=== PATIENT | female | born 1955 | race Caucasian/White ===

== ENCOUNTER 2025-09-02 11:58 | Outpatient (CLI) | payer MEDICARE, MEDICAID, SELFPAY ==
--- NOTE | ~2025-09-02 | XR_ITS ---
XR lumbar spine 6V w bending Indication: M54.9 - Dorsalgia, unspecified Comparison: None Findings: No fracture, no subluxation flexion-extension Moderate loss of disc height throughout with moderate to severe loss of disc at L5-S1. Soft tissues unremarkable Impression: No acute abnormality. Reviewed, dictated and finalized at location P. Impression: No acute abnormality.
--- NOTE | ~2025-09-02 | XR_ITS ---
EXAMINATION: XR sacrum coccyx min 2V, 09/02/2025 12:20 CDT HISTORY: M46.1 - Sacroiliitis, not elsewhere classified COMPARISON: No comparisons available. Findings: No acute fracture or malalignment. Sclerosis of the sacroiliac joints, no erosions, no bridging osteophyte formation. Soft tissues unremarkable. Impression: No acute fracture or malalignment. Reviewed, dictated and finalized at location P. Impression: No acute fracture or malalignment.
--- OUTSIDE RECORDS SUMMARY | 2025-09-02 13:52 | XMS_ITS | Clinical Summary ---
Author Organization [facility] Address [address] [place] [address] Care Team Providers Care Detonator Maker Name Role Phone Kostas Montalvo MD Primary Care Provider [phone] Kostas Montalvo MD Unavailable [phone] Allergies Active Allergy Reactions Criticality Noted Date Comments Acetaminophen-Codeine Unknown 06/27/2023 Buspirone Unknown 01/17/2023 Buspirone HCL Codeine Codeine Other (See comments),Anaphylaxis High 03/03/2013 States I get a really bad stomach ache and it keeps going up and up into chest to where I can't breathe Levofloxacin Itching High 07/14/2021 Levofloxacin Itching Low 10/30/2022 Medications cyclobenzaprin e (FLEXERIL) 10 mg tablet Take by mouth 2 (two) times a day as needed 2 Active HYDROcodone-ac etaminophen (NORCO) 5-325 mg per tablet [address] (PROTONIX) 40 mg EC tablet Take 1 tablet (40 mg total) by mouth 2 (two) times a day 3 Active rOPINIRole (REQUIP) 0.5 mg tablet Take 1 tablet (0.5 mg total) by mouth nightly 3 Active denosumab (Prolia) 60 mg/mL syringe Inject 1 mL (60 mg total) under the skin Active albuterol (PROAIR RESPICLICK) 90 mcg/actuation inhaler Inhale every 4 (four) hours as needed Active Ca-D3-mag rp-ebda-xcx-ma ng-bor (Calcium 600-D3 Plus, mag-zinc,) 600 mg calcium- 20 mcg-50 mg tablet Take by mouth daily Active multivitamin tablet Take by mouth daily Active cyanocobalamin (Vitamin B-12) 1,000 mcg/mL injection cyanocobalamin (vit B-12) 1,000 mcg/mL injection solution Inject 1000 micrograms every month by subcutaneous route. Active cyanocobalamin (Vitamin B-12) 100 mcg tablet Take 0.5 tablets (50 mcg total) by mouth daily Active ferrous sulfate 325 mg (65 mg of elemental iron) tablet Take 1 tablet (325 mg total) by mouth daily Active Humira,CF, Pen 40 mg/0.4 mL pen injector kitIndications :Crohn's Disease Inject 0.4 mL (40 mg total) under the skin every 14 (fourteen) days 6 each 3 5 Active Active Problems Problem Noted Date Diagnosed Date Crohn's disease of colon without complication History of gastric bypass 07/07/2024 Tobacco use disorder 07/07/2024 Abnormal liver function tests 06/27/2023 Mass of left side of neck 01/17/2023 Overview (01/21/2023): Left neck mass, FNA (01/17/23, [facility]) - Necroinflammatory debris - Organisms, most consistent with Gram-positive cocci Assessment & Plan (03/14/2023 12:05 PM CDT): - Remains on Augmentin. She has had some decrease in size of left neck mass after last aspiration but no improvement in size since. She does have a new small nodule to the center of the mass. No erythema, warmth, tenderness or issues swallowing. - Etiology of left neck mass remains unclear but seems to be due to infection given purulence on aspiration and +Strep on culture. She reports no improvement with antibiotics alone, only with aspirations. Will reach out to ENT regarding further intervention. If she is to undergo an excision of mass would recommend it be send for pathology and culture (aerobic/anaerobic, AFB, fungal). It is possible she has an atypical organism causing infection as she is currently on Humira - For now she will continue on Augmentin while we clarify further plans with ENT Assessment & Plan (02/14/2023 1:10 PM CDT): - Large, firm left sided neck mass noted on exam. No erythema, fluctuance, or tenderness. Currently off antibiotics. - Discussed possible causes of infection with patient including the Strep intermedius that was cultured. Given she is immunocompromised on Humira we will also investigate other infectious causes that could present this way, including Bartonella and Tularemia (serologies drawn today). She has follow up with ENT tomorrow and states she believes area will be aspirated. Will ask to be sent again for culture (aerobic/anaerobic, fungal, AFB), pathology, and Bartonella PCR if possible. Message sent to Dr. Zeng regarding cultures. Will follow up on results and restart antibiotics based on findings. - Recommend she hold her dose of Humira that is scheduled for tomorrow until we have completed work up for left neck mass. I called and spoke with nurse for her GI physician and discussed our recommendations. She will hold tomorrows dose and I will call GI office when we believe it is safe to restart. - Discussed with patient the rational for treatment, culture results, risk of recurrent infection, signs/symptoms of recurrent infection, and to contact ID clinic with any questions or concerns Crohn's disease of colon with complication 07/14 Lung mass 06/27/2012 Surgical History Surgery Date Site/Laterality Comments [facility] Cholecystectomy - (Added by [facility] Conv) [facility] TOTAL ABDOMINAL HYSTERECT W/WO RMVL TUBE OVARY Hysterectomy - (Added by TW Conv) GASTRIC BYPASS Gastric Surgery For Morbid Obesity Gastric Bypass - -1987 (Added by TW Conv) [facility] HEMORRHOIDECTOMY INTERNAL RUBBER BAND LIGATIONS Hemorrhoidectomy - (Added by TW Conv) [facility] TONSILLECTOM[facility] PRIMARY/SEC ONDARY <AGE 12 Tonsillectomy - (Added by TW Conv) SHOULDER SURGERY Shoulder Surgery Left - (Added by TW Conv) ESOPHAGOGASTRODUODENOSCOPY COLONOSCOPY Medical History Medical History Date Comments Anxiety disorder Anxiety - (Adde d by TW Conv) COPD (chronic obstructive pulmonary disease) Crohn disease (HCC) Chronic low back pain GERD (gastroesophageal reflux disease) Depression Tobacco abuse Diverticulosis Metabolic dysfunction-associ ated steatotic liver disease (MASLD) Family History Medical History Relation Name Comments Cancer Brother 1 Cancer Brother 2 Cancer - (Added by TW Conv) Cancer Father Cancer - (Added by TW Conv) Brain cancer Mother Brain Tumor - ( Added by TW Conv) Breast cancer Mother Breast Cancer - (Added by TW Conv) Cancer Mother Cancer Sister 1 Cancer Sister 2 Cancer - (Added by [employer] Conv) Relation Name Status Comments Brother 1 Brother 2 Father Mother Sister 1 Sister 2 Social History Tobacco Use Types Packs/Day Years Used Date Smoking Tobacco: Every Day Cigarettes Tobacco Cessation:Ready to Q uit: Not Asked; Counseling Given: Not Answered AUDIT-C Answer Date Recorded Q1: How often do you have a drink containing alc ohol? 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 Gender Identity Not on file Sexual Orientation Not on file Obstetrics History Last Filed Vital Signs Vital Sign Reading Time Taken Comments Blood Pressure 163/80 07/07/2024 1:02 PM CDT Pulse 96 07/07/2024 1:02 PM CDT Temperature 36.8 C (98.2 F) 06/27/2023 8:01 AM CDT Respiratory Rate 18 01/15/2023 12:4 6 PM 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 Oxygen Saturation 97% 07/07/2024 1:02 PM CDT Inhaled Oxygen Concentration - - Weight 52.6 kg (115 lb 14.4 oz) 07/07/2024 1:02 PM CDT Height 149.9 cm (4' 11) 07/07/2024 1:02 PM CDT Body Mass Index 23.41 07/07/2024 1:02 PM CDT Plan of Treatment Health Maintenance Due Date Last Done Comments Colon Cancer Screening-Colonoscopy 1955 Depression Screening 1955 Fall Risk Assessment 1955 Hepatitis C Screening 1955 DTaP/Tdap/Td Vaccine (1 - Tdap) 07/16/2012 2 Zoster Vaccine (2 of 3) 11/18/2015 09/23/2015 Well Visit 65+ 2019 Osteoporosis Screening-Bone Density Scan 09/04/2023 09/04/2021, 09/04/2021 Breast Cancer Screening-Mammogram 05/29/2024 023 Influenza Vaccine (#1) 2025 , 09/08/2021, 09/05/2020, Additional history exists Pneumococcal vaccine 65+ (3 of 3 - PCV20 or PCV21) 09/05/2025 09/05/2020, 09/23/2015 Hepatitis B Screening Completed 07/07/2024 Insurance [employer] MEDICARE MEDICARE [facility] Address: [address] [address] [place] [address] IDMI Care Teams Detonator Maker Relationship Specialty Start Date End Date Kostas Montalvo MD [address] [place] [id number] PCP - General Family Practice 01/15/23 Kostas Montalvo MD [address] [place] [id number] Family Practice 01/15/23
--- OUTSIDE RECORDS SUMMARY | 2025-09-02 13:52 | XMS_ITS | Data Portability ---
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 Plan of Treatment Reminders Order Date Submit Date Provider Last Modified By Organization Details Last Modified Time Details Appointments Follow Up 15 2024 10:30A NILS Falcon Not available Not available Not available Lab TSH, serum or plasma 2024 025 [facility] (Lab), [address] [place], [address], 08/17/2025 17:09:33 lipid panel, serum [address] (Lab), [address] [place], [address], 08/20/2025 08:45:23 CMP, serum or plasma [address] (Lab), [address] [place], [address], 08/20/2025 08:45:23 unlisted lab - shield blood-bas ed colorecta l cancer screening 2024 025 [place] [address] [employer] [facility], [address], [place], [address], 08/20/2025 08:45:24 glycohemo globin, total, blood [address] (Lab), [address] [place], [address], 08/20/2025 08:45:23 magnesium , serum or plasma [address] (Lab), [address] [place], [address], 08/20/2025 08:45:23 CBC w/ auto diff [address] (Lab), [address] [place], [address], 08/20/2025 08:45:23 hemoglobi n A1C, fingersti ck 2024 025 [facility], [address] [place] [address], [address], 05/05/2025 16:02:39 glycohemo globin, total, blood [address] (Lab), [address] [place], [address], 2025 08:44:10 urinalysi s, dipstick 2024 025 [facility], [address] [place] [address], [address], 02/18/2025 10:18:48 culture, urine + sensitivi ty 2024 025 [facility] (Lab), [address] [place], [address], 02/19/2025 11:10:59 Referral pain managemen t referral - Please call patient to schedule an appointme nt. Thank you. 2024 025 [email or web address] Alberto Garcia MD, [address], [place], [address], 08/09/2025 09:29:12 otolaryng ologist referral - Please call patient to schedule an appointme nt. Thank you. 2024 025 [email or web address] Selvin Hollis MD, [address], [place], [address], 08/09/2025 09:29:32 Procedures None recorded. Surgeries None recorded. Imaging MAMMO, screening , digital, bilateral - Please call patient to schedule. 2024 025 [facility], [address], [address] [address], [place], [address], 08/16/2025 11:55:19 XR, lumbosacr al spine, 2 or 3 view [id number] [place] [address] Imaging, [address], [place], [address], 05/19/2025 17:36:17 Medication Orders cyclobenz aprine 5 mg tablet 2024 025 [facility], [address] [place] [address], [address], 08/13/2025 12:54:28 Ozempic 0.25 mg or 0.5 mg (2 mg/3 mL) subcutane ous pen injector 2024 025 [place], [address] [place] [address], [address], 05/05/2025 15:30:46 Debrox 6.5 % ear drops 2024 025 [place], [address] [place] [address], [address], 04/07/2025 11:30:07 DermOtic Oil 0.01 % ear drops 2024 025 [place] [place], [address] [place] [address], [address], 04/07/2025 11:32:25 Debrox 6.5 % ear drops 2024 025 [facility], [address] [place] [address], [address], 03/28/2025 16:23:30 docusate sodium 100 mg capsule 2024 025 [facility], [address] [place] [address], [address], 02/18/2025 10:01:21 polyethyl lucia glycol 3350 17 gram/dose oral powder 2024 025 [facility], [address] [place] [address], [address], 02/18/2025 10:01:24 ciproflox acin 500 mg tablet 2024 025 [facility], [address] [place] [address], [address], 05/05/2025 15:16:56 Debrox 6.5 % ear drops 2024 025 [facility], [address] [place] [address], [address], 02/18/2025 10:11:25 Patient TargetsNo targets recorded. Patient Instructions Encounter Date Encounter Id Patient Instructions Last Modified By Organization Details Last Modified Time 03/24/2025 [id number] right ear clear , left ear some cerumen came out , but not all . RTC 7 days for left ear irrigation [email or web address] Not available 03/28/2025 16:23:29 04/07/2025 [id number] rtc 7 days for left ear irrigation [email or web address] Not available 04/13/2025 11:39:35 Reason for Referral Pain Management Referral for Lumbar spondylosis Please call patient to schedule an appointment. Thank you. Referring Physician: Ludmila Asher, Family Medicine, Encounter Date: 05/05/2025 Knowledge Architect Referral fo r Bilateral earache Please call patient to schedule an appointment. Thank you. Referring Physician: Ludmila Asher, [facility] Medicine, Encounter Date: 05/05/2025 Results Created Date Observation Date Name Description Value Unit Range Abnormal Flag Note LastModifiedBy Organization Detail LastModifiedTime 05/05/2005/05/2025 hemog lobin A1C, finge rstic k HgbA1C 5.[address], [address], 05/05/2025 15:19:40 07/01/2007/01/2025 urina lysis , dipst ick Leukocytes (reference range: negative killian/ l) Negati ve Not Available [address], [address], 02/18/2025 10:07:17 07/01/20 25 07/01/2025 urina lysis , dipst ick Nitrite (reference rage: negative mg/dl) negati ve Not Available [address], [address], 02/18/2025 10:07:17 07/01/20 25 07/01/2025 urina lysis , dipst ick Urobilinogen (reference range: 0.2-1 mg/dl) 0.2 Not Available [address], [address], 02/18/2025 10:07:17 07/01/20 25 07/01/2025 urina lysis , dipst ick Protein (reference range: negative mg/dl) Negati ve Not Available [address], [address], 02/18/2025 10:07:17 07/01/20 25 07/01/2025 urina lysis , dipst ick pH (reference range: 5-7) 6.0 Not Available [address], [address], 02/18/2025 10:07:17 07/01/20 25 07/01/2025 urina lysis , dipst ick Blood (reference range: negative Low/ l) Negati ve Not Available [address], [address], 02/18/2025 10:07:17 07/01/2007/01/2025 urina lysis , dipst ick Specific [place] (reference range: 1.005-1.030) 1.005 Not Available [address], [address], 02/18/2025 10:07:17 07/01/20 25 07/01/2025 urina lysis , dipst ick Ketone (reference range: negative mg/dl) Negati ve Not Available [address], [address], 02/18/2025 10:07:17 07/01/20 25 07/01/2025 urina lysis , dipst ick Bilirubin (reference range: negative mg/dl) Negati ve Not Available [address], [address], 02/18/2025 10:07:17 07/01/2007/01/2025 urina lysis , dipst ick Glucose (reference range: negative mg/dl) Negati ve Not Available [address], [address], 02/18/2025 10:07:17 07/01/20 25 07/01/2025 urina lysis , dipst ick Appearance Clear Not Available [facility] [place] [address] [facility], [place], [address], 02/18/2025 10:07:17 07/01/20 25 07/01/2025 urina lysis , dipst ick Color Yellow Not Available [facility] [place] [address] [facility], [place], [address], 02/18/2025 10:07:17 08/13/20 25 08/22/2025 SHIEL D BLOOD -BASE D COLOR ECTAL CANCE R SCREE BRIDGET crc NEGATI VE negative Not Available [facility] [address], [place], [address], 08/22/2025 15:56:01 05/24/20 25 05/24/2025 XR, lumbo sacra l spine , 2 or 3 view No observ ation record ed. [address] [facility] [address], [place], [address], 06/02/2025 17:27:37 05/24/20 25 05/24/2025 XR, lumbo sacra l spine , 2 or 3 view No observ ation record ed. [facility] [address], [place], [address], 05/24/2025 17:57:17 Result Notes None recorded. Problems Name Problem SNOMED Code Status Onset Date Resolution Date Notes Provider Name and Address Organization Details Recorded Time Disorder of trunk 377143350 Active Not Available [facility] 3 09:14:51 Abscess 684673083 Active Not Available [facility] 3 09:14:51 Smoking reduced 137887781 Active Not Available [facility] 3 09:14:51 Folliculit is 13459988 Active Not Available [facility] 3 09:14:51 Chronic obstructiv e pulmonary disease 07449582 Active Not Available [facility] 3 09:14:51 Chronic vaginitis 90090028 Active Not Available [facility] 3 09:14:51 Hearing difficulty 106038351 Active Not Available [facility] 3 09:14:51 Asthma 882598028 Active Not Available [facility] 3 09:14:52 Osteoarthr itis of knee 540208857 Active Not Available [facility] 3 09:14:52 Acute vaginitis 77720020 Active Not Available [facility] 3 09:14:52 Hand cramps 521559310 Active Not Available [facility] 3 09:14:52 Headache 19010975 Active Not Available [facility] 3 09:14:52 Wound of skin 607822816 Active Not Available [facility] 3 09:14:52 Low back pain 381098643 Active Not Available [facility] 3 09:14:52 Pruritic disorder 782850172 Active Not Available [facility] 3 09:14:52 Polyuria 01234595 Active Not Available [facility] 3 09:14:52 Pain in right lower limb 568917989 Active Not Available [facility] 3 09:14:52 Vaginal discharge problem 621303700 Active Not Available [facility] 3 09:14:52 Dental abscess 789685278 Active Not Available [facility] 3 09:14:52 Pain in calf 111191304 Active Not Available [facility] 3 09:14:52 Left upper quadrant pain 461885130 Active Not Available [facility] 3 09:14:52 Current tear of medial cartilage AND/OR meniscus of knee Active Not Available [facility] 3 09:14:53 Current tear of lateral cartilage AND/OR meniscus of knee Active Not Available [facility] 3 09:14:53 Type 2 diabetes mellitus without complicati on 037807167 Active Ludmila Asher, NILS [address] [facility] [facility] [address], [place], [address] , [facility] 5 12:43:45 Abscess of lower limb 099892156 Active Not Available [facility] 3 09:14:53 Abscess of skin and/or subcutaneo us tissue 87892861 Active Not Available [facility] 3 09:14:53 Restless legs syndrome 96009175 Active Not Available [facility] 3 09:14:53 Depressive disorder 91749800 Active Not Available [facility] 3 09:14:53 Hypertensi ve disorder 28473083 Active NILS Santana [address], [place], [address] , [facility] [facility] 5 12:43:27 Memory impairment 104230300 Active Not Available [facility] 3 09:14:53 Osteoarthr itis 799722123 Active Not Available [facility] 3 09:14:53 Dermatosis of scalp 513265171 Active Not Available [facility] 3 09:14:54 Dizziness 572668941 Active Not Available [facility] 3 09:14:54 Epidermoid cyst of skin 070235341 Active Not Available [facility] 3 09:14:54 Bacterial vaginosis 952175930 Active Not Available [facility] 3 09:14:54 Chronic osteoarthr itis 01775843 Active Not Available [facility] 3 09:14:54 Pain of breast 12244265 Active Not Available [facility] 3 09:14:54 Upper respirator y infection 20681478 Active Not Available [facility] 3 09:14:54 Hyperlipid emia 96764139 Active NILS Santana [address], [place], [address] , [facility] [facility] 5 12:57:31 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 06022299 Active Not Available [facility] 3 09:14:55 Essential hypertensi on 53321652 Active Not Available [facility] 3 09:14:55 Hypercalce jovani 69761898 Active Not Available [facility] 3 09:14:55 Hyperparat hyroidism 00278482 Active Not Available [facility] 3 09:14:55 Muscle pain 58994946 Active Not Available [facility] 3 09:14:55 Diabetes mellitus 35372295 Active Not Available [facility] 3 09:14:55 Pain in limb 98106500 Active Not Available [facility] 3 09:14:55 Reactive airway disease 917019521719 Active Not Available [facility] 3 09:14:55 Hearing loss 68679046 Active 2021 Not Available [facility] 3 09:14:51 Hearing loss 14603392 Active 2021 Not Available [facility] 3 09:14:51 Constipati on 89365538 Active 2021 Not Available [facility] 3 09:14:51 Mass of colon 959197271 Active 2021 Not Available [facility] 3 09:14:54 Otitis externa of right ear 0446000181684 101 Active 2022 Shirley Graf MD [address], [place], [address] , [facility] 3 17:57:32 Abdominal pain 39814701 Active 2022 Shirley Graf MD [address], [place], [address] , [facility] 3 15:33:34 Nausea and vomiting 37249700 Active 2022 Shirley Graf MD [address], [place], [address] , [place] [facility] 3 15:47:55 Sleep disorder 32045424 Active 2022 Shirley Graf MD [address], [place], [address] , [facility] 3 15:12:43 Closed fracture of left ankle 2656800975085 9108 Active 2022 CRAIG Morales [address], [place], [address] , [facility] 3 15:11:05 Bilateral hearing loss 69533939 Active 2023 Ronak Garvin RN null, [facility] 4 14:34:32 SARS-CoV-2 Active 2023 CRAIG Morales [address], [place], [address] , [facility] 4 09:07:59 Impacted cerumen of bilateral ears 9808692047649 108 Active 2023 CRAIG Morales [address], [place], [address] , [facility] 4 17:18:45 Screening for malignant neoplasm of breast Active 2023 CRAIG Morales [address], [place], [address] , [facility] 4 14:40:56 Mass of central portion of left breast 1322643283436 06 Active 2023 CRAIG Morales [address], [place], [address] , [facility] 4 15:09:19 Mass of left breast 1080513214228 9103 Active 2023 Olive Purcell RN null, [facility] 4 11:31:21 Type 2 diabetes mellitus 76828120 Active 2023 Odalys [place] RN null, [facility] 4 08:21:23 Serum creatinine above reference range 858939642 Active 2023 CRAIG Morales [address], [place], [address] , [facility] 4 00:12:32 Impacted cerumen 05400921 Active 2023 Barbara Burk shawn, [place] [facility] 4 09:52:25 Neuropathy 781727280 Active 2023 CRAIG Morales [address], [place], [address] , [place] [facility] 4 09:52:47 Acute urinary tract infection 622698466 Active 2024 CRAIG Morales [address], [place], [address] , [place] [facility] 5 10:03:15 Chronic kidney disease stage 3A 799922186 Active 2024 NILS Santana [address], [place], [address] , [place] [facility] 5 17:10:01 Hypertensi ve renal disease 83262901 Active 2024 CRAIG Morales [address], [place], [address] , [place] [facility] 5 16:29:52 Eczema of external auditory canal 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 Active 2024 CRAIG Morales [address], [place], [address] , [place] [facility] 5 11:30:12 Lumbar spondylosi s 023220443 Active 2024 NILS Santana [address], [place], [address] , [place] [facility] 5 15:27:34 Bilateral earache 047945394 Active 2024 NILS Santana [address], [place], [address] , [place] [facility] 5 15:33:39 Nausea 192831361 Active 2024 NILS Santana [address], [place], [address] , [place] [facility] [employer] 5 11:10:08 Cratavares 89985451 Active 2024 NILS Santana [address] [facility] [address], [place], [address] , [facility] [employer] [facility] [employer] 5 12:44:13 Leukocytos is 378075479 Active 2024 NILS Santana [address] [facility], [address] [address], [place], [address] , [facility] [employer] [facility] [employer] 12:22:14 Notes:Some problems listed i n Documents: #[id number], #[id number], #[id number], #[id number], #[id number], #[id number] could not be added to this patient's chart. Please review these documents and add these problems to the patient's chart manually as needed. Problem Notes None recorded. Procedures Surgical History Date Name Laterality Status Provider Name and Address Organization Details Recorded Time 5 Ear Irrigation completed CRAIG Morales [address] [facility], [address] [address], [place], [address], [employer] [facility] [employer] 04/13/2025 11:39:05 5 Ear Irrigation completed CRAIG Morales [address] [facility], [address] [address], [place], [address], [employer] [facility] [employer] 03/24/2025 12:21:55 4 Medicare Wellness CPT Code, subsequent completed Odalys [place] RN [place] [employer] [facility] [employer] 04/27/2024 11:51:50 3 Transitional_C are_Management completed Tracie Flaherty MA [facility] 04/25/2023 14:50:35 Imaging Results None recorded. Procedure Notes None recorded. Medical Equipment None Reported. Allergies Allergen ID Allergen Name Allergen Category Reaction Reaction Severity Criticality Documentation Date Start Date Code Code System Note Provider Name and Address Organization Details Recorded Time 60355 amoxicill in medicatio n Not available Not available Not available 01/16/2023 723 RxNorm yeast infec tion Not Available [facility] 3 09:17:34 Medications Name Sig Start Date Stop Date Status Note LastModified by Organization Details LastModified Time verapamil ER (SR) 120 mg tablet,ex tended release TAKE 1 TABLET BY MOUTH EVERY DAY active Not Available Not Available No t Available cyclobenz aprine 10 mg tablet TAKE 1 TABLET(S ) TWICE A DAY BY ORAL ROUTE. active Not Available Not Available No t Available neomycin- polymyxin -hydrocor t 3.5 mg/mL-10, 000 unit/mL-1 % ear solution INSTILL 4 DROPS INTO AFFECTED EAR(S) BY OTIC ROUTE 3 TIMES PER DAY active Not Available Not Available No t Available BD Alcohol Swabs active Not Available Not Available Not Available nystatin 100,000 unit/mL oral suspensio n active Not Available Not Available Not Available venlafaxi ne ER 37.5 mg capsule,e xtended release 24 hr TK 1 C PO QD 08/02 completed Not Available Not Available Not Available venlafaxi ne ER 75 mg capsule,e xtended release 24 hr TK 1 C PO QD 03/08 completed Not Available Not Available Not Available gabapenti n 600 mg tablet TK 1 T PO TID 10/27 completed Not Available Not Available Not Available nicotine 14 mg/24 hr daily transderm al patch Apply 1 patch every day by transder mal route. active Not Available Not Available No t Available Pneumovax -23 25 mcg/0.5 mL injection solution INJECT 0.5 ML INTRAMUS CULARLY DIRECTED . active Not Available Not Available No t Available oxybutyni n chloride ER 10 mg tablet,ex tended release 24 hr TAKE 1 TABLET BY MOUTH EVERY DAY active Not Available Not Available No t Available azithromy mt 250 mg tablet TAKE 2 TABLETS BY MOUTH TODAY, THEN TAKE 1 TABLET DAILY FOR 4 DAYS 05/15 completed Not Available Not Available Not Available ibuprofen 800 mg tablet TAKE 1 TABLET BY MOUTH THREE TIMES A DAY NEEDED 08/02 completed Not Available Not Available Not Available fluconazo le 150 mg tablet Take 1 tablet every day by oral route. 01/26 completed Not Available Not Available Not Available ranitidin e 300 mg tablet TAKE 1 TABLET TWICE A DAY 05/04 completed Not Available Not Available Not Available hydrocodo ne 5 mg-acetam inophen 325 mg tablet TK 1 OR 2 TS PO Q 4 TO 6 H PRN active Not Available Not Available No t Available ondansetr on HCl 8 mg tablet Take 1 tablet every 8 hours by oral route for 2 days. active Not Available Not Available No t Available meloxicam 15 mg tablet TAKE 1 TABLET BY MOUTH EVERY DAY 05/05 completed Not Available Not Available Not Available metronida zole 0.75 % (37.5 mg/5 gram) vaginal gel INSERT 1 APPLICAT ORFUL VAGINALL Y FOR 5 DAYS active Not Available Not Available No t Available Medrol (Amarjit) 4 mg tablets in a dose pack Take by oral route as directed 05/15 completed Not Available Not Available Not Available prednison e 20 mg tablet 05/15 completed Not Available Not Available Not Available dexametha sone 6 mg tablet Take 1 tablet every day by oral route in the morning for 7 days. 04/27 completed Not Available Not Available Not Available gabapenti n 400 mg capsule Take 1 capsule 3 times a day by oral route. 11/05 completed Not Available Not Available Not Available metronida zole 500 mg tablet TK 2 TS PO Q 12 H FOR 1 DAY active Not Available Not Available No t Available acetamino phen 300 mg-codein e 30 mg tablet active Not Available Not Available Not Available insulin syringe U-100 with needle 1 mL 29 gauge x 06/02 completed Not Available Not Available Not Available ciproflox acin 500 mg tablet Take 1 tablet every 12 hours by oral route for 10 days. 05/05 completed Not Available Not Available Not Available sulfameth oxazole 800 mg-trimet hoprim 160 mg tablet Take 1 tablet every 12 hours by oral route for 10 days. 08/02 completed Not Available Not Available Not Available hydrocodo ne 10 mg-acetam inophen 325 mg tablet 08/02 completed Not Available Not Available Not Available peg-elect rolyte solution 420 gram oral solution MIX AND DRINK UTD 10/27 completed Not Available Not Available Not Available omeprazol e 40 mg capsule,d elayed release Take 1 capsule every day by oral route. active Not Available Not Available No t Available tramadol 50 mg tablet TAKE 1-2 TABLETS BY MOUTH twice daily NEEDED FOR PAIN. MUST LAST 30 DAYS. active Not Available Not Available No t Available acetamino phen 500 mg tablet Take 2 tablets every 6 hours by oral route as needed. active Not Available Not Available No t Available triamcino lone acetonide 0.1 % topical cream APPLY THIN LAYER TO DAMP SCALP RUB IN WELL COVER LEAVE ON 4 HOURS OVERNIGH T THEN WASH OFF 08/02 completed Not Available Not Available Not Available butalbita l-acetami nophen-ca ffeine 50 mg-325 mg-40 mg tablet TAKE 1 TABLET BY MOUTH 4 TIMES DAILY NEEDED FOR HEADACHE active Not Available Not Available No t Available simvastat in 40 mg tablet TAKE 1 TABLET BY MOUTH EVERY DAY 08/02 completed Not Available Not Available Not Available ondansetr on 8 mg disintegr ating tablet TAKE 1 TABLET BY MOUTH 3 TIMES PER DAY NEEDED FOR NAUSEA active Not Available Not Available No t Available lidocaine -prilocai ne 2.5 %-2.5 % topical cream active Not Available Not Available Not Available pramipexo le 0.5 mg tablet Take 1 tablet every day by oral route at bedtime. active Not Available Not Available No t Available Celebrex 200 mg capsule Take 1 capsule every day by oral route. 2013 active Not Available Not Available Not Avai lable meloxicam 7.5 mg tablet TK 1 T PO D PRN 09/02 completed Not Available Not Available Not Available verapamil 120 mg tablet Take 1 tablet every day by oral route. 09/02 completed Not Available Not Available Not Available oxycodone -acetamin ophen 5 mg-325 mg tablet active Not Available Not Available Not Available alprazola m 0.5 mg tablet TAKE 1 TABLET TWICE A DAY BY ORAL ROUTE NEEDED. 03/06 completed Not Available Not Available Not Available amoxicill in 875 mg tablet active Not Available Not Available Not Available alprazola m 0.25 mg tablet TAKE 1 TABLET BY MOUTH 3 TIMES A DAY NEEDED active Not Available Not Available No t Available famotidin e 20 mg tablet TAKE 1 TABLET BY MOUTH TWICE A DAY active Not Available Not Available No t Available oxycodone -acetamin ophen 10 mg-325 mg tablet TK 1 T PO Q 6 H PRN P active Not Available Not Available No t Available Ear Wax Removal Kit 6.5 % drops INSTILL 10 DROPS INTO AFFECTED EAR(S) ( LEFT EAR) BY OTIC ROUTE 1 TIMES PER DAY... leave for 30 minutes , pull up and back on auricle and drain ,, use rubber ear plugs to keep fluid in active Not Available Not Available No t Available meclizine 25 mg tablet TAKE 1 TABLET 3 TIMES A DAY BY ORAL ROUTE NEEDED. 03/06 completed Not Available Not Available Not Available amlodipin e 10 mg tablet 1 po daily 06/27 completed Not Available Not Available Not Available dexametha sone 2 mg tablet 04/27 completed Not Available Not Available Not Available hydrocodo ne 7.5 mg-acetam inophen 325 mg tablet active Not Available Not Available Not Available cephalexi n 500 mg capsule Take 1 capsule every 12 hours by oral route. active Not Available Not Available No t Available oseltamiv ir 75 mg capsule Take 1 capsule twice a day by oral route for 5 days. 08/02 completed Not Available Not Available Not Available Prozac 20 mg capsule one po daily 08/22 completed Not Available Not Available Not Available metformin 1,000 mg tablet TAKE 1 TABLET BY MOUTH TWICE A DAY active Not Available Not Available No t Available triamcino lone acetonide 0.1 % topical ointment active Not Available Not Available Not Available ranitidin e 150 mg tablet Take 1 tablet twice a day by oral route. 09/02 completed Not Available Not Available Not Available clotrimaz ole-betam ethasone 1 %-0.05 % topical cream APPLY TO RASH ON BOTTOM TWICE A DAY NEEDED UNTIL CLEAR active Not Available Not Available No t Available ranitidin e 300 mg capsule active Not Available Not Available Not Available orphenadr ine citrate ER 100 mg tablet,ex tended release 08/02 completed Not Available Not Available Not Available nicotine 21 mg/24 hr daily transderm al patch APPLY 1 PATCH(ES ) EVERY DAY BY TRANSDER MAL ROUTE. active Not Available Not Available No t Available Advair Diskus 500 mcg-50 mcg/dose powder for inhalatio n INHALE 1 PUFF BY MOUTH TWICE A DAY NEEDED active Not Available Not Available No t Available docusate sodium 100 mg capsule Take 1 capsule twice a day by oral route as directed for 30 days. active Not Available Not Available No t Available gabapenti n 300 mg capsule TAKE 1 CAPSULE BY MOUTH THREE TIMES A DAY 02/12 completed Not Available Not Available Not Available omeprazol e 20 mg capsule,d elayed release TAKE ONE CAPSULE BY MOUTH EVERY DAY active Not Available Not Available No t Available Banophen 25 mg capsule TAKE 1 CAPSULE BY MOUTH 3 TIMES DAILY NEEDED FOR ALLERGIC REACTION active Not Available Not Available No t Available monteluka st 10 mg tablet TAKE 1 TABLET BY MOUTH EVERY DAY IN THE EVENING active Not Available Not Available No t Available hydroxyzi ne HCl 25 mg tablet TAKE 1 TO 2 TABLETS AT BEDTIME NEEDED ITCHING active Not Available Not Available No t Available bisacodyl 5 mg tablet,de layed release active Not Available Not Available Not Available mupirocin 2 % topical ointment APPLY TO AFFECTED AREA 3 TIMES A DAY 03/06 completed Not Available Not Available Not Available zolpidem 5 mg tablet active Not Available Not Available Not Available furosemid e 20 mg tablet active Not Available Not Available Not Available gabapenti n 100 mg capsule Take 1 capsule 3 times a day by oral route. 10/06 completed Not Available Not Available Not Available ergocalci ferol (vitamin D2) 1,250 mcg (50,000 unit) capsule TAKE 1 CAP BY MOUTH 1 TIME PER WEEK active Not Available Not Available No t Available clobetaso l 0.05 % topical ointment 10/27 completed Not Available Not Available Not Available epinephri ne 0.3 mg/0.3 mL injection , auto-inje ctor active Not Available Not Available Not Available ibuprofen 600 mg tablet 01/26 completed Not Available Not Available Not Available cefuroxim e axetil 500 mg tablet active Not Available Not Available Not Available polyethyl lucia glycol 3350 17 gram/dose oral powder MIX 17GM WITH LIQUID AND TAKE BY MOUTH DAILY NEEDED 3 days per week active Not Available Not Available No t Available levofloxa mt 500 mg tablet 1 po daily 04/22 completed Not Available Not Available Not Available albuterol sulfate HFA 90 mcg/actua tion aerosol inhaler INHALE 2 PUFFS BY MOUTH EVERY 4 HOURS NEEDED FOR WHEEZING /SOB active Not Available Not Available No t Available morphine 15 mg immediate release tablet active Not Available Not Available Not Available ondansetr on 4 mg disintegr ating tablet 05/04 completed Not Available Not Available Not Available cefdinir 300 mg capsule active Not Available Not Available Not Available fluticaso ne propionat e 50 mcg/actua tion nasal spray,dom pension USE 2 SPRAYS IN EACH NOSTRIL DAILY active Not Available Not Available No t Available loratadin e 10 mg tablet TK 1 T PO QD 09/02 completed Not Available Not Available Not Available spironola ctone 50 mg tablet Take 1 tablet every day by oral route. active Not Available Not Available No t Available nicotine 7 mg/24 hr daily transderm al patch Apply 1 patch every day by transder mal route. active Not Available Not Available No t Available Pneumovax -23 25 mcg/0.5 mL injection syringe PHARMACY ADMINIST ERED 05/04 completed Not Available Not Available Not Available Q-Dryl 12.5 mg/5 mL oral liquid TK 5 ML PO Q 6-8 H PRN FOR MILD TO SEVERE ALLERGIC REACTION 09/02 completed Not Available Not Available Not Available escitalop lurdes 20 mg tablet TAKE 1 TABLET BY MOUTH EVERY DAY 08/02 completed Not Available Not Available Not Available nicotine 21mg/24hr -14mg/24h r-7mg/24h r daily transderm patches,s equentl Apply 1 patch every day by transder mal route. 08/02 completed Not Available Not Available Not Available cyclobenz aprine 5 mg tablet TAKE 1 TABLET BY MOUTH AT BEDTIME NEEDED FOR MUSCLE SPASMS active Not Available Not Available No t Available duloxetin e 30 mg capsule,d elayed release TAKE 1 CAPSULE BY MOUTH EVERY DAY FOR 2 WEEKS active Not Available Not Available No t Available duloxetin e 60 mg capsule,d elayed release TAKE 1 CAPSULE BY MOUTH EVERY DAY 05/04 completed Not Available Not Available Not Available Muse-Smo othe/FS Scalp Oil 0.01 % APPLY THIN LAYER TO DAMP SCALP BY TOPICAL ROUTE MASSAGE WELL AND COVER. LEAVE ON FOR 4 HOURS OR OVERNIGH T THEN WASH OFF active Not Available Not Available No t Available pregabali n 50 mg capsule Take 1 capsule twice a day by oral route as needed for 30 days. active Not Available Not Available No t Available zoledroni c acid 2013 active injectio n given once on 06/25/14 Not Available Not Available Not Available OneTouch Ultra2 Meter kit 09/08 completed Not Available Not Available Not Available Chantix 1 mg tablet FPD UTD 10/27 completed Not Available Not Available Not Available fluocinol one acetonide oil 0.01 % ear drops INSTILL 5 DROPS INTO AFFECTED EAR(S) bilatera l BY OTIC ROUTE 4 TIMES PER DAY for 2 days then 2 times daily active Not Available Not Available No t Available aripipraz ole 2 mg tablet 08/02 completed Not Available Not Available Not Available Symbicort 160 mcg-4.5 mcg/actua tion HFA aerosol inhaler INHALE 2 PUFFS BY MOUTH TWICE DAILY - RINSE MOUTH AFTER USE active Not Available Not Available No t Available venlafaxi ne ER 150 mg tablet,ex tended release 24 hr Take 1 tablet every day by oral route. 08/22 completed Not Available Not Available Not Available Prevnar 13 (PF) 0.5 mL intramusc ular syringe TO BE ADMINIST ERED BY [facility] FOR IMMUNIZA TION 09/02 completed Not Available Not Available Not Available Chantix Starting Month Box 0.5 mg (11)-1 mg (42) tablets in dose pack 05/07 completed Not Available Not Available Not Available Stimulant Laxative Plus 8.6 mg-50 mg tablet Take 2 tablets every day by oral route as needed. active Not Available Not Available No t Available Fluvirin (PF) 45 mcg (15 mcg x3)/0.5 mL intramusc ular syringe TO BE ADMINIST ERED BY [facility] FOR IMMUNIZA TION active Not Available Not Available No t Available Easy Touch Safety Lancets 30 gauge DIABETIC TESTING SUPPLY Check BS daily active Not Available Not Available No t Available Farxiga 10 mg tablet Take 1 tablet every day by oral route as directed for 90 days. 2024 active Not Available Not Available Not Avai lable Fluvirin 45 mcg (15 mcg x 3)/0.5 mL intramusc ular suspensio n INJECT 0.5 ML INTRAMUS CULARLY DIRECTED . active Not Available Not Available No t Available Fluvirin 45 mcg (15 mcg x 3)/0.5 mL intramusc ular suspensio n active Not Available Not Available Not Available Rexulti 1 mg tablet TAKE 1 TABLET BY MOUTH EVERY DAY active Not Available Not Available No t Available Rexulti 0.5 mg tablet 08/02 completed Not Available Not Available Not Available Fluvirin 45 mcg (15 mcg x 3)/0.5 mL intramusc ular suspensio n ADM 0.5ML IM UTD active Not Available Not Available No t Available Accu-Chek Guide test strips ACCUCHEC K TWICE DAILY active Not Available Not Available No t Available Flucelvax Quad (PF) 60 mcg (15 mcg x 4)/0.5 mL IM syringe TO BE ADMINIST ERED BY [facility] FOR IMMUNIZA TION 09/02 completed Not Available Not Available Not Available Fluzone Quad (P F) 60 mcg(15 mcgx4)/0. 5 mL intramusc ular syringe TO BE ADMINIST ERED BY [facility] FOR IMMUNIZA TION 10/27 completed Not Available Not Available Not Available Accu-Chek Guide Me Glucose Meter active Not Available Not Available Not Available Fluzone High-Dose Quad (PF) 240 mcg/0.7 mL IM syringe PHARMACY ADMINIST ERED 05/04 completed Not Available Not Available Not Available Ozempic 1 mg/dose (4 mg/3 mL) subcutane ous pen injector INJECT 0.75ML (1MG) SUB-Q EVERY WEEK ON SATURDAY active Not Available Not Available No t Available Paxlovid 300 mg (150 mg x 2)-100 mg tablets in a dose pack take 3 tabs twice daily for 5 days 08/18 completed Not Available Not Available Not Available Ozempic 0.25 mg or 0.5 mg (2 mg/3 mL) subcutane ous pen injector INJET 0.5MG SUB-Q ONCE WEEKLY ON Saturday active Not Available Not Available No t Available Vitals Date Recorded Body height Body mass index (BMI) Body weight Body temperature Oxygen saturation Oxygen saturation in Arterial blood by Pulse oximetry Heart rate Systolic And Diastolic Provider Name and Address Organization Details Last Updated DateTime 5 161.29 cm 35 kg/m2 01808.0 7 g 97.5 [degF] 96 % 96 % 98 /min 120/72 mm[Hg] ANABELLA Willams [place] - [facility] [employer] [facility] 5 09:50:35 Date Recorded Body height Body mass index (BMI) Body weight Body temperature Heart rate Oxygen saturation Oxygen saturation in Arterial blood by Pulse oximetry Systolic And Diastolic Provider Name and Address Organization Details Last Updated DateTime 5 161.29 cm 35 kg/m2 55178.0 7 g 97.8 [degF] 83 /min 96 % 96 % 130/88 mm[Hg] ANABELLA Willams [facility] [employer] [facility] 5 11:45:04 Date Recorded Body height Body mass index (BMI) Body weight Body temperature Heart rate Oxygen saturation Oxygen saturation in Arterial blood by Pulse oximetry Systolic And Diastolic Provider Name and Address Organization Details Last Updated DateTime 5 161.29 cm 35.3 kg/m2 68093.3 8 g 97.2 [degF] 94 /min 97 % 97 % 130/78 mm[Hg] Anabelle Oscar [facility] [employer] [facility] 5 10:51:20 Date Recorded Body height Body temperature Heart rate Respiratory rate Oxygen saturation Oxygen saturation in Arterial blood by Pulse oximetry Pain severity - 0-10 verbal numeric rating [Score] - Reported Body mass index (BMI) Body weight Systolic And Diastolic Provider Name and Address Organization Details Last Updated DateTime 5 161.29 cm 97 [degF] 84 /min 28 /min 97 % 97 % 4 35.6 kg/m2 47311.9 4 g 132/90 mm[Hg] Jaki Fuentes RN [facility] [employer] [facility] 5 15:08:21 Date Recorded Body height Body mass index (BMI) Body weight Body temperature Heart rate Pain severity - 0-10 verbal numeric rating [Score] - Reported Oxygen saturation Oxygen saturation in Arterial blood by Pulse oximetry Respiratory rate Systolic And Diastolic Provider Name and Address Organization Details Last Updated DateTime 5 161.29 cm 31.6 kg/m2 68929.2 2 g 97.2 [degF] 98 /min 5 97 % 97 % 24 /min 110/78 mm[Hg] Jaki Fuentes RN [facility] [employer] [facility] 5 12:23:56 Social History Question Answer Notes LastModified by Organizat ion Details LastModified Time Tobacco Smoking Status Never Smoker SHAHZAD Marlow, [facility] [employer] [facility] 02/12/2023 11:52:08 Do You Have An Advance Directive? Yes Winsome [email or web address] Information not available 08/13/2025 Are You Blind Or Do You Have Difficulty Seeing? Yes Glasses Information not available 05/05/2025 In The 14 Days Before Symptom Onset, Have You Had Close Contact With A Laboratory-confir med COVID-19 While That Case Was Ill? No [id number] Information not available 01/16/2023 In The 14 Days Before Symptom Onset, Have You Had Close Contact With A Person Who Is Under Investigation For COVID-19 While That Person Was Ill? No [id number] Information not available 01/16/2023 Are You Deaf Or Do You Have Serious Difficulty Hearing? Yes Very Hard Of Hearing Information not available 05/05/2025 What Type Of Diet Are You Following? REGULAR Information not available 08/13/2025 Have There Been Any Changes To Your Family Or Social Situation? No Information no t available 05/05/2025 Do You Use Insect Repellent Routinely? No Information not available 08/13/2025 Advance Directive- Providers Has Reviewed Directive And Consents To Follow Them (insert Provider Name With Any Objectives In Notes Field) No Information not available 08/13/2025 Presence Of Domestic Violence No Information no t available 08/13/2025 Guns Present In The Home? No Information not available 08/13/2025 Are You Able To Care For Yourself? Yes Information not available 08/13/2025 Are You Blind Or Do Yo Have Difficulty Seeing? Yes Wears Glasses Information not available 08/13/2025 Are You Deaf Or Do You Have Serious Difficulty Hearing? Yes Very Information not available 08/13/2025 General Stress Level? Low Information not available 08/13/2025 Live Alone Of With Others? With Others Information not available 08/13/2025 What Was The Date Of Your Most Recent Tobacco Screening? 04/27/2024 [email or web address] Information not available 04/27/2024 Do You Have Any Pets? No Information not available 05/05/2025 What Is Your Relationship Status? Single Information not available 08/13/2025 Do You Use Your Seat Belt Or Car Seat Routinely? Yes Information not available 05/05/2025 Do You Have Smoke And Carbon Monoxide Detectors In Your Home? Yes Information not available 05/05/2025 Are You Passively Exposed To Smoke? No Information no t available 05/05/2025 Are There Any Smokers In Your House? No Information not available 05/05/2025 Do You Participate In Social Media? No Information not available 05/05/2025 Do You Use Sunscreen Routinely? No Information not available 08/13/2025 Have You Recently Traveled Abroad? No [id number] Information not available 01/16/2023 Do You Have Difficulty Walking Or Climbing Stairs? No Information not available 05/05/2025 Sex: Unknown Functional Status Question Answer Note LastModified by Organizat ion Details LastModified Time What is your level of alcohol consumption? None [email or web address] Information not available 02/12/2023 Are you currently employed? No Information not available 05/05/2025 Do you have transportation difficulties? No Information not available 05/05/2025 Are you able to walk independently without assistance or assistive devices? YESWOREST Information not available 05/05/2025 Do you have difficulty doing errands alone? Yes Information not available 05/05/2025 Are you able to care for yourself independently? lives at Extended care facility Information not available 05/05/2025 Do you have difficulty dressing, bathing, grooming, or toileting? No Information not available 05/05/2025 Mental Status Question Answer Note LastModified by Organizat ion Details LastModified Time Do you feel stressed (tense, restless, nervous, or anxious, or unable to sleep at night)? [id number] Information not available 05/05/2025 Do you have difficulty concentrating, remembering or making decisions? Yes Information no t available 08/13/2025 Family History Relationship Description Onset Age of this Age Resolved Age Notes LastModified by Organization Details LastModified Time Sister Diabetes mellitus [id number] Not available 01/16/2023 09:13:45 Sister Hypertensive disorder [id number] Not available 01/16/2023 09:13:45 Mother Diabetes mellitus [id number] Not available 01/16/2023 09:13:45 Medical History Condition Response DIZZINESS Y KIDNEY DISEASE Y DIABETES, TYPE Y ALLERGIES/HAYFEVER Y OTHER # 1 Y HYPOTENSION Y SEASONAL ALLERGIES Y HEARTBURN / REFLUX Y COPD Y OBESITY Y ECZEMA Y ASTHMA Y BOWEL PROBLEMS Y BACK / NECK PROBLEMS Y DEPRESSION (INCLUDING POST ) Y Gynecological HistoryNo gynecological history recorded. Obstetrics History GPAL:G 0 P 0 0 0 0 Immunizations Vaccine Type Date Status Note Provider Nam e and Address Organization Details Recorded Time Influenza, high-dose, quadrivalent, PF 2 completed Not Available [employer] 01/16/2023 09:17:30 Influenza, adjuvanted, quadrivalent, PF 1 completed Jaki Fuentes RN null, [place] [employer] [facility] [employer] 08/13/2025 12:18:05 COVID-19, mRNA, LNP-S, PF, 30 mcg/0.3 mL dose 1 completed Jaki Fuentes RN [facility] [place] [employer] 08/13/2025 12:18:05 Influenza, high-dose, trivalent, PF 4 completed CRAIG Morales [address] [address], [place], [address], [employer] [facility] [employer] 09/08/2024 17:14:35 pneumococcal polysaccharide PPV23 4 completed CRAIG Morales [address] [address], [place], [address], [employer] [facility] [employer] 09/08/2024 17:14:35 Past Encounters Encounter ID Performer Location Encounter Start Date Encounter Closed Date Diagnosis/Indication Diagnosis SNOMED-CT Code Diagnosis ICD10 Code Diagnosis IMO Codes Diagnosis Note [id number] Shirley Graf MD [facility] Ryne suarez [address] [facility] [place] [address] 05/04/2021 00:00:00 05/04/2021 21:10:09 [id number] Shirley Graf MD [facility] [place] [address] [place] [address] 07/06/2021 00:00:00 07/07/2021 06:21:32 [id number] Shirley Graf MD [facility] [place] [address] [place] [address] 07/27/2021 00:00:00 07/27/2021 21:01:06 [id number] Shirley Graf MD [facility] [place] [address] [place] [address] 08/17/2021 00:00:00 08/17/2021 21:22:01 [id number] Shirley Graf MD [facility] [place] [address] , [place] [address] 10/06/2021 00:00:00 10/06/2021 16:32:07 [id number] Shirley Graf MD [facility] [place] [address] [place] [address] 01/09/2022 00:00:00 01/10/2022 06:09:32 [id number] Shirley Graf MD [facility] [place] [address] [place] [address] 01/18/2022 00:00:00 01/18/2022 19:58:45 [id number] Shirley Graf MD [facility] [place] [address] [place] [address] 02/07/2022 00:00:00 02/07/2022 19:49:21 [id number] Shirley Graf MD [facility] [place] [address] [place] [address] 05/15/2022 00:00:00 05/15/2022 21:12:50 [id number] Shirley Graf MD [facility] [place] [address] [place] [address] 09/27/2022 00:00:00 09/28/2022 06:33:05 [id number] Shirley Graf MD [facility] [place] [address] [place] [address] 11/07/2022 00:00:00 11/07/2022 20:53:39 [id number] Shirley Graf MD [facility] [place] [facility] [place] [address] 02/20/2023 14:52:47 02/20/2023 15:53:38 Abdominal pain 79314316 R10.9 Needs to d/c meloxicam. Needs to start omeprazole 40 mg daily Nausea and vomiting 1692 1999 R11.2 Ask for zofran as needed, has it as prn at facility she lives inF/u in 2 weeks. [id number] Shirley Graf MD [facility] [place] [facility] [place] [address] 03/06/2023 14:38:42 03/06/2023 15:18:45 Abdominal pain 92620379 R10.9 Doing better Hearing loss 76166714 H9 1.93 Get new hearing aides the ones she has is cutting into outside of ear Sleep disorder 68478884 G47.9 [id number] Shirley Graf MD [facility] [place] [facility] [place] [address] 04/25/2023 14:47:22 04/25/2023 15:28:25 Transition of care 5205700193 105 Z75.8 Closed fra cture of left ankle 7696219702 1572987 S82.892A Chronic low back pain 27 3604885 M54.50 [id number] Shirley Graf MD [facility] Ryne smithe [address] [place] [address] [place] [address] 02/13/2024 11:49:01 02/13/2024 12:34:02 Impacted cerumen of bilateral ears 2053614671 123644 H61.23 Asthma 380792965 J45.90 9 Chronic ob structive pulmonary disease 43744552 J44.9 Chronic osteoarthritis 27081435 M19.90 Constipation 78496421 K5 9.00 Depressive disorder 3548 9007 F32.A Essential hypertension 32385480 I10 Hearing difficulty 21431 0000 H90.0 Hidradenit is suppurativa 24472711 L73.2 Hyperlipidemia 97061805 E78.5 Low back pain 412302387 M54.50 Osteoarthr itis of knee 228670828 M17.9 Restless l egs syndrome 72511767 G25.81 Type 2 panda betes mellitus without complication 662674740 E11.9 [id number] Amilcar Lowery MD [facility] [place] [address] [place] [address] [place] [address] 02/26/2024 14:02:34 02/26/2024 15:00:10 Impacted cerumen of bilateral ears 5002229192 616822 H61.23 Screening for malignant neoplasm of breast 460197827 Z12.39 Asthma 693093556 J45.90 9 Bilateral hearing loss 22286288 H91.93 Chronic ob structive pulmonary disease 20810376 J44.9 Chronic osteoarthritis 03840497 M19.90 Depressive disorder 3548 9007 F32.A Essential hypertension 15707237 I10 Hyperlipidemia 75701042 E78.5 Low back pain 703238092 M54.50 Osteoarthritis 405795317 M19.90 Osteoarthr itis of knee 010413906 M17.9 Restless l egs syndrome 06967904 G25.81 [id number] Amilcar Lowery MD [facility] [place] [address] 04/27/2024 11:47:44 04/27/2024 12:32:10 Adult health examination 116441596 Z00.00 Screening for disorder 627145170 Z13.9 Abscess 603752641 L02.91 sternum [id number] Amilcar Lowery MD [address] [place] [address] 08/18/2024 11:19:50 08/18/2024 11:55:18 Administration of influenza vaccine 68072730 Z23 Chronic low back pain 27 3388647 M54.50 Impacted c erumen of bilateral ears 0495714810 734173 H61.23 Administra tion of pneumococcal vaccine 17383466 Z23 Asthma 720387934 J45.90 9 Bilateral hearing loss 05702324 H91.93 Chronic ob structive pulmonary disease 58675269 J44.9 Chronic osteoarthritis 99980602 M19.90 Depressive disorder 3548 9007 F32.A Hearing loss 09070145 H9 1.93 Restless l egs syndrome 10771496 G25.81 Type 2 panda betes mellitus without complication 495678065 E11.9 [id number] Amilcar Lowery MD [address] [place] [address] 08/28/2024 11:51:05 10/14/2024 09:50:33 Impacted cerumen 09660159 H61.22 [id number] Amilcar Lowery MD [address] [address] 02/18/2025 09:37:50 02/18/2025 10:22:55 Constipation 92996006 K59.00 Acute urin gómez tract infection 899976414 N39.0 Impacted c erumen of bilateral ears 9826067909 011686 H61.23 [id number] Amilcar Lowery MD [address] [address] 03/24/2025 11:34:36 03/24/2025 12:16:11 Bilateral hearing loss 11225319 H91.93 Impacted c erumen of bilateral ears [id number] 229799 H61.23 Type 2 panda betes mellitus [id number] E11.9 Hypertensi ve renal disease 64452566 I12.9 N18.31 [id number] Amilcar Lowery MD [address] [address] 04/07/2025 10:40:41 04/07/2025 11:37:56 Hypertensive renal disease 37437111 I12.9 N18.31 [id number] Acute urin gómez tract infection 043427788 N39.0 Impacted cerumen 7625788 6 H61.22 Impacted c erumen of bilateral ears 1102466235 011678 H61.23 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 She currently takes tramadol, pregabalin , and tylenol for this. 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 Makes her cry Screening mammography 24 064301 Z12.31 39231145 Screening for malignant neoplasm of colon 411793991 Z12.11 Health Concerns Section Related Observation LastModified by Organization Detai ls LastModified Time None Recorded Concern Status LastModified by Organization Details LastModified Time None Recorded Advance Directives Directive Y: Winsome Adan Payers Insurance Date Sequence Insurance Name Policy Number Policy Hurtado Covered Member ID Hurtado Member ID Guarantor Name 08/18/2024 1 [facility] [id number] Jazmin Garvin [id number] Jazmin Garvin 08/16/2025 1 [facility] (MEDICARE REPLACEMENT/AD VANTAGE - PPO) [id number] Jazmin Garvin [id number] Redcomfort Garvin 08/18/2024 1 [facility] (MEDICARE REPLACEMENT/AD VANTAGE - PPO) Jazmin Garvin [id number] Jazmin Garvin 08/16/2025 2 [place] [facility] Jazmin Garvin [id number] Jazmin Garvin 08/16/2025 2 [place] WHEN MEDICARE OR MEDICARE REPLACEMENT PRIMARY) Jazmin Garvin [id number] Jazmin Garvin 08/16/2025 2 [facility] ON OR AFTER 06/18/2025 (MEDICAID REPLACEMENT - HMO) Jazmin Garvin [id number] Jazmin Garvin Notes Date Note Type Note Provider Name and Address Organization Details Recorded Time 02/18/2025 text/html ROS as noted in the HPI chills yesterday and today , no fever CRAIG Morales [address], [place], [address], [employer] 02/22/2025 10:51:22 03/24/2025 text/html ROS as noted in the HPI both ears stopped up since . CRAIG Morales [address], [place], [place], [address], [employer] 03/28/2025 16:30:43 04/07/2025 text/html ROS as noted in the HPI still wax in ear, left , not sure they are putting in drops right at the facility CRAIG Morales [address], [place], [place], [address], [employer] 04/13/2025 11:44:49 05/05/2025 text/html Redcomfort Brown is a 70 year old female patient here today to establish care, she was previously under the care of Darius Veronica. She is hard of hearing, she has concerns today with BARB ear pain, this is chronic.She has difficulty with speech related to her hearing loss. 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 She has concerns today with neuropathy of the right leg, this is causing her pain today. She takes pregabalin 50 mg BID and tramadol 50 mg daily. This has been present for 3-4 years. 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 Last A1C unknown.The patient does check their blood glucose at home.They are currently taking metformin 1,000 mg BID.Patient denies confusion, excessive urination and thirst.Admits to neuropathy History of hypertension. This is well controlled. Patient does not check BP readings at home. She takes verapamil 120 mg daily.BP on arrival today is 132/90.Patient declines fatigue.She admits to headaches and dizziness daily. She will take a tylenol for this. She does have asthma. She takes Symbicort daily. Ludmila Asher, ANGULAR DEVELOPER [address] [facility], [place], [address], [facility] 05/05/2025 16:02:44 08/13/2025 text/html Jazmin Garvin is a 70 year old female patient here today for a 1 month FU She is hard of hearing, she has concerns today with BARB ear pain, this is chronic.She has difficulty with speech related to her hearing loss. 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 She has concerns today with neuropathy of the right leg, this is causing her pain today. She takes pregabalin 50 mg BID and tramadol 50 mg daily. This has been present for 3-4 years.She has concerns with leg cramping She has persistent back pain. 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 Last A1C unknown.The patient does check their blood glucose at home.They are currently taking metformin 1,000 mg BID.Patient denies confusion, excessive urination and thirst.Admits to neuropathy History of hypertension. This is well controlled. Patient does not check BP readings at home. She takes verapamil 120 mg daily.BP on arrival today is 132/90.Patient declines fatigue.She admits to headaches and dizziness daily. She will take a tylenol for this. She does have asthma. She takes Symbicort daily. Flu shot: will get at pharmacyCOVID vaccines: [id number]: 2023, PCV20 recommendedMammogra m: orderedPAP: many years agoColonoscopy: clean many years ago, unsure when NILS Santana [address] [facility], [facility] [address], [place], [address], [place] [facility] 08/13/2025 13:24:08 OBGyn Episode No OBEpisode recorded.
--- OUTSIDE RECORDS SUMMARY | 2025-09-02 13:52 | XMS_ITS | Clinical Summary ---
Author Organization [facility] Address [address] [address] Phone Care Team Providers Care Quiller Machine Fixer Name Role Phone Kostas oMntalvo MD Primary Care Provider [phone] Karthik Herron MD Unavailable [phone] Allergies Active Allergy Reactions Criticality Noted Date Comments Buspirone Unknown Buspirone HCL Codeine Unknown Codeine derivatives Levofloxacin Itching High 07/14/2021 Medications Multiple Vitamin (DAILY VALUE MULTIVITAMIN) Tablet Take 1 Tablet by mouth daily. Active citalopram (CELEXA) 20 MG Tablet Take 20 mg by mouth daily as needed. Active Calcium Carbonate-Vit D-Min (CALCIUM 600+D PLUS MINERALS) 600-400 MG-UNIT Tablet Take by mouth daily. Active Calcium 600 MG Tablet Take by mouth daily. Active traMADol (ULTRAM) 50 MG Tablet Take by mouth. 2 tablets BID PRN Active pantoprazole (PROTONIX) 20 MG Tablet Delayed Response Take 20 mg by mouth daily. Active cyclobenzaprine (FLEXERIL) 10 MG Tablet Take by mouth 2 times daily. Active Cyanocobalamin (B-12 PO) Take by mouth daily as needed. Active Cyanocobalamin (B-12 COMPLIANCE INJECTION IJ) by Injection route every 30 days. Active Ferrous Sulfate (IRON PO) Take by mouth daily. Active ALBUTEROL IN take by inhalation every 4 hours as needed. Active Denosumab (Prolia) 60 MG/ML Solution Prefilled Syringe 60 mg by Subcutaneous route every 180 days. Active ROPINIROLE HCL PO Take 1 Tablet by mouth nightly. Active HYDROcodone-acet aminophen (NORCO) 5-325 MG Tablet Take 1 Tablet by mouth every 4 hours as needed. Active PREDNISONE PO Take by mouth. A ctive amoxicillin-clav ulanate (AUGMENTIN) 875-125 MG Tablet TAKE 1 TABLET BY MOUTH EVERY 12 HOURS 3 Active Adalimumab (Humira, 2 Pen,) 40 MG/0.4ML Pen-injector KitIndications:C rohn's disease of colon with complication Take 0.4 mL by mouth every 14 days. 2 Each 5 4 Active Active Problems Problem Noted Date Diagnosed Date Status post gastric bypass for obesity 2 Long-term use of high-risk medication 10/04/2021 Crohn's disease of colon with complication 07/14 Immunizations Immunization Administration Dates Next Due Influenza Vaccine 08/28/2022, 1,09/05/2020,2018 Influenza Vaccine greater than 3 yrs 09/10/2013 Pneumococcal Vaccine - 13 Valent 09/05/2020 Pneumococcal Vaccine Adult - 23 Valent 09/23/2015 TD VACCINE 07/15/2012 Zoster Vaccine, live 09/23/2015 Family History Medical History Relation Name Comments Cancer Brother Cancer Father No Known Problems Maternal Aunt No Known Problems Maternal Grandfather No Known Problems Maternal Grandmother No Known Problems Maternal Uncle Cancer Mother Breast and brai n stem No Known Problems Other No Known Problems Paternal Aunt No Known Problems Paternal Grandfather No Known Problems Paternal Grandmother No Known Problems Paternal Uncle Cancer Sister Relation Name Status Comments Brother Father Maternal Aunt Maternal Grandfather Maternal Grandmother Maternal Uncle Mother Other Paternal Aunt Paternal Grandfather Paternal Grandmother Paternal Uncle Sister Social History Tobacco Use Types Packs/Day Years Used Date Smoking Tobacco: Every Day Cigarettes 1.5 45 Smokeless Tobacco: Never Tobacco Cessation:Ready to Q uit: Yes; Counseling Given: Yes Alcohol Use Standard Drinks/Week Comments Never 0 (1 standard drink = 0.6 oz pur e alcohol) Sexually Active Control Partners Comments Not Currently Comments No Sex and Gender Information Value Date Recorded Sex Assigned at Not on file Legal Sex Female 12:19 AM CDT Gender Identity Not on file Sexual Orientation Not on file Last Filed Vital Signs Vital Sign Reading Time Taken Comments Blood Pressure 140/88 12/11/2023 12:45 PM RETAIL SELLING FLOOR LEADER Pulse 92 12/11/2023 12:45 PM RETAIL SELLING FLOOR LEADER Temperature 36 C (96.8 F) 12/11/2023 10:18 AM RETAIL SELLING FLOOR LEADER Respiratory Rate 14 12/11/2023 12:45 PM RETAIL SELLING FLOOR LEADER Oxygen Saturation 98% 12/11/2023 12:45 PM RETAIL SELLING FLOOR LEADER Inhaled Oxygen Concentration - - Weight 54.4 kg (120 lb) 12/03/2023 1:00 PM RETAIL SELLING FLOOR LEADER Height 149.9 cm (4' 11) 12/03/2023 1:00 PM RETAIL SELLING FLOOR LEADER Body Mass Index 24.24 12/03/2023 1:00 PM RETAIL SELLING FLOOR LEADER Plan of Treatment Health Maintenance Due Date Last Done Comments TdaP Immunization 1954 Cologuard 1999 Immunochemical Fecal Occult Blood 1999 Respiratory Syncytial Virus (RSV) Immunization (Adult) (1 - Risk 60-74 years 1-dose series) 2014 Zoster Immunization (1 of 2) 11/18/2015 09/23/2015 Medicare Initial AWV G0438 03/18/2020 SARS-COV-2 Immunization (3 - Moderna risk series) 07/11/2021 06/13/2021, 03/16/2021 DEXA Bone Density 09/04/2023 09/04/2021 Mammogram 06/13/2024 06/13/2023, 07/25/2021 Influenza Immunization (#1) 07/19/202508/18, 09/08/2021, 09/05/2020, Additional history exists Pneumococcal Immunization (50+ years) (3 of 3 - PCV20 or PCV21) 09/05/2025 09/05/2020, 09/23/2015 Colonoscopy 12/11/2026 12/11/2023, 03/2 07/2022, 02/04/2017 Colorectal Cancer Screening 12/11/2026 DTaP/Tdap/Td Immunization Discontinued 07/15/2012 Pneumococcal Immunization Combined Discontinued 09/05/2020, 09/23/2015 Hepatitis C Virus (HCV) Screening Completed 07/24/2023, 11/01/2022 Hepatitis B Immunization Aged Out No longer eligible based on patient's age to complete this topic Human Papillomavirus (HPV) Immunization Aged Out No longer eligible based on patient's age to complete this topic Meningococcal Immunization (ACWY) Aged Out No longer eligible based on patient's age to complete this topic Rotavirus Immunization Aged Out No lo nger eligible based on patient's age to complete this topic Procedures Procedure Name Priority Date/Time Associated Diagnosis Comments HEPATITIS PANEL ACUTE (AHP) Routine 11/01/2022 12:32 PM RETAIL SELLING FLOOR LEADER Elevated liver enzymes Inflammatory liver disease, unspecified ROBERTO BONE DENSITOMETRY AXIAL SKELETON Routine 09/04/2021 12:00 AM CDT Crohn's disease of colon with complication (HCC) Postmenopause MAMMOGRAM BILATERAL GENERIC 07/25/2021 12:00 AM CDT from Last 3 Months or Most Recently Relevant to Health Maintenance Results * HEPATITIS PANEL ACUTE (AHP) (11/01/2022 12:32 PM RETAIL SELLING FLOOR LEADER) HEPATITIS A IGM ANTIBODY NON DETECTED NON DETECTED [facility] [id number] B 11/01/2022 9:23 PM RETAIL SELLING FLOOR LEADER [facility] Comment: IGM Antibodies to HAV not detected. Does not exclude early acute or recovered HAV infection. HEP B CORE AB (IGM) NON DETECTED NON DETECTED [facility] ARCH [id number] B 11/01/2022 9:23 PM RETAIL SELLING FLOOR LEADER [facility] Comment:IGM anti-HBC not det ected. Does not exclude the possibility of exposure to or infection with HBV. HEPATITIS B SURFACE ANTIGEN NON DETECTED NON DETECTED [facility] ARCH [id number] B 11/01/2022 9:23 PM RETAIL SELLING FLOOR LEADER [facility] Comment:A nonreactive test r esult does not exclude the possibility of exposure to or infection with Hepatitis B virus. A nonreactive test result in individuals with prior exposure to hepatitis B may be due to antigen levels below the detection limit of this assay or lack of antigen reactivity to the antibodies in this assay. hepatitis C antibody 0.14 <1 S/CO [facility] ARCH [id number] B 11/01/2022 9:23 PM RETAIL SELLING FLOOR LEADER [facility] Comment: Signal/Cutoff ratio < 0.79 is Nondetected Signal/Cutoff ratio 0.80-0.99 is Grayzone Signal/Cutoff ratio > 0.99 is Detected Supplemental assays are recommended if signal/cutoff ratio is >/=1.00. Signal/cutoff ratio result >/= 5.00 is 97% predictive of positivity for recombinant immunoblot assay (RIBA) and will be reported to the [place] Department of Public Health as required. Blood Venipuncture / Unknown 11/01/2022 12:32 PM RETAIL SELLING FLOOR LEADER 11/01/2022 12:46 PM RETAIL SELLING FLOOR LEADER us Karthik Herron MD HEMATOLOGY ORDERABLES Final Res ult [facility] [address] [place] [address], [place] * ROBERTO BONE DENSITOMETRY AXIAL SKELETON (09/04/2021 12:00 AM CDT) Anatomical Region Laterality Modality BODY N/A Other 09/04/2021 us Angela Nayak PAC IMG DEXA ORDERABLES Final Result * MAMMOGRAM BILATERAL MISCELLANEOUS (07/25/2021 12:00 AM CDT) 07/25/2021 us Not On File Provider IMG MAMMO ORDERABLES Final Result SCAN from Last 3 Months or Most Recently Relevant to Health Maintenance Insurance MEDICAID [place] MEDICARE C [employer] Care Teams Quiller Machine Fixer Relationship Specialty Start Date End Date Kostas Montalvo MD [address] [place] [address] PCP - General Family Medicine 02/10/22 Karthik Herron MD [address] [place] [address] Consulting Physician Gastroenterology 08/16/22
--- OUTSIDE RECORDS SUMMARY | 2025-09-02 13:52 | XMS_ITS | Encounter Summary ---
Author Organization [facility] Healthcare Address [address] [place] [address] Care Team Providers Care Chute Man Name Role Phone Kostas Montalvo MD Primary Care Provider [phone] Kostas Montalvo MD Unavailable [phone] Reason for Visit * Auth/Cert (Routine) Specialty Diagnoses / Procedures Referred By Contcyril t Referred To Contact Diagnoses Crohn's disease of colon without complication (HCC) Crohn's disease of colon without complication (CMS/HCC) (HCC) [K50.10] Procedures [place] COLONOSCOPY FLX DX W/COLLJ SPEC WHEN PFRMD COLONOSCOPY Referral ID Status Reason Start Date Expiration Date Visits Re quested Visits Authorized [id number] 1 1 Encounter Details Date Type Department Care Team (Late st Contact Info) Description 12/28/2024 Hospital Encounter [facility] [address] [place] [address] Jareth Whitaker, DO 4 [facility] [address] [address] Social History Tobacco Use Types Packs/Day Years Used Date Smoking Tobacco: Every Day Cigarettes AUDIT-C Answer Date Recorded Q1: How often [...] on file Legal Sex Female 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 Gender Identity Not on file Sexual Orientation Not on file documented as of this encounter Plan of Treatment Not on file documented as of this encounter Visit Diagnoses Diagnosis Crohn's disease of colon without complication (HCC)- Primary documented in this encounter Admitting Diagnoses Diagnosis Crohn's disease of colon without complication (HCC) documented in this encounter Care Teams Chute Man Relationship Specialty Start Date End Date Kostas Montalvo MD [address] [place] [address] PCP - General Family Practice 01/15/23 Kostas Montalvo MD [address] [place] [address] Family Practice 01/15/23 documented as of this encounter
--- OUTSIDE RECORDS SUMMARY | 2025-09-02 13:52 | XMS_ITS | Encounter Summary ---
Author Organization [facility] Address [address] [place] [address] Phone Care Team Providers Care Machine Cloth Examiner Name Role Phone Kostas Montalvo MD Primary Care Provider [phone] Kostas Montalvo MD Unavailable [phone] Encounter Details Date Type Department Care Team (Late st Contact Info) Description 07/24/2023 Orders Only [facility] Scanning, Provider Social History Tobacco Use Types Packs/Day Years Used Date Smoking Tobacco: Every Day Cigarettes AUDIT-C Answer Date Recorded Q1: How often do you have a drink containing alc ohol? 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 Gender Identity Not on file Sexual Orientation Not on file documented as of this encounter Plan of Treatment Not on file documented as of this encounter Procedures Procedure Name Priority Date/Time Associated Diagnosis Comments SCAN - LABS 07/24/2023 documented in this encounter Results * SCAN - LABS (07/24/2023) us Provider Scanning Edited Result - Final documented in this encounter Visit Diagnoses Not on filedocumented in this encounter Care Teams Machine Cloth Examiner Relationship Specialty Start Date End Date Kostas Montalvo MD [address] [place] [address] PCP - General Family Practice 01/15/23 Kostas Montalvo MD [address] [place] [address] Family Practice 01/15/23 documented as of this encounter
--- OUTSIDE RECORDS SUMMARY | 2025-09-02 13:52 | XMS_ITS | Encounter Summary ---
Author Organization [facility] Address [address] [place] [address] Phone Care Team Providers Care Relay Mechanic Name Role Phone Kostas Montalvo MD Primary Care Provider Karthik Herron MD Unavailable [phone] Reason for Visit * Reason Comments Medication Refill Encounter Details Date Type Department Care Team (Late st Contact Info) Description 04/25/2024 Refill [facility] [address] [place] [id number] Tracey Almendarez, ATOMIC PHYSICS PROFESSOR, SHOE DRESSER [address] [place] [address] Medication Refill Social History Tobacco Use Types Packs/Day Years Used Date Smoking Tobacco: Every Day Cigarettes 1.5 45 Smokeless Tobacco: Never Alcohol Use Standard Drinks/Week Comments Never 0 (1 standard drink = 0.6 oz pur e alcohol) Sexually Active Control Partners Comments Not Currently Comments No Sex and Gender Information Value Date Recorded Sex Assigned at Not on file Legal Sex Female 12:19 AM CDT Gender Identity Not on file Sexual Orientation Not on file documented as of this encounter Miscellaneous Notes * Telephone Encounter - Alba Melo RN - 05/01/2024 8:34 AM CDT [facility] with [facility] calling to follow up on Humira refill. Reviewed with Haven awaiting providers review. Haven verbalized understanding. Please see messages below. * Telephone Encounter - Alba Melo RN - 04/29/2024 3:21 PM CDT Spoke with patient, she has an appt in May with [facility]. She is not sure of the exact date. Patient has 2 Humira pens on hand. Her next injection will be due sara 04/30/2024 and her next dose will be due on 05/14/2024. Would provider be willing to approve Humira medication refill without patient making an ov or does provider prefer patient to make an ov. Last ov was on 04/18/[address] Herron. * Telephone Encounter - Alba Melo RN - 04/29/2024 9:07 AM CDT Pharmacy requesting refill of: Requested Prescriptions Pending Prescriptions Disp Refills Humira, 2 Pen, 40 MG/0.4ML Pen-injector Kit [Pharmacy Med Name: Humira Pen 40 MG/0.4ML SubcutaneousPen-injector Kit] 2 Each 5 Sig: INJECT 40MG SUBCUTANEOUSLY EVERY 2 WEEKS Last fill: 11/20/2023 Patients last OV with GI: 06/27/2023 Next Office Visit with GI: none scheduled. Called patient to offer an appt. Left message for patient to call back. documented in this encounter Plan of Treatment Not on file documented as of this encounter Visit Diagnoses Diagnosis Crohn's disease of colon with complication documented in this encounter Care Teams Relay Mechanic Relationship Specialty Start Date End Date Kostas Montalvo MD [address] [place] [address] PCP - General Family Medicine 02/10/22 Karthik Herron MD [address] [place] [address] Consulting Physician Gastroenterology 08/16/22 documented as of this encounter
== END 2025-09-02 11:59 | disposition home or self-care (01) ==
PROVIDERS: PCP Emergency Medicine; Visit Provider Nurse Practitioner Adult Health
DX: M54.9 Dorsalgia, unspecified (principal); M47.816 Spondylosis without myelopathy or radiculopathy, lumbar region; M46.1 Sacroiliitis, not elsewhere classified
CPT/HCPCS: 72114; 72220

== ENCOUNTER 2025-10-06 14:37 | Outpatient (CLI) | payer MEDICARE, MEDICAID, SELFPAY ==
--- NOTE | ~2025-10-06 | MR_ITS ---
EXAM/PROCEDURE: MR lumbar spine wo con HISTORY: M47.816 - Spondylosis without myelopathy or radiculopathy... COMPARISON: None available. TECHNIQUE: Noncontrast multiplanar lumbar spine MRI performed. FINDINGS: Degenerative changes are present throughout the lumbar spine involving disc spaces and posterior elements. No gross acute or aggressive bony or soft tissue process seen. The conus tapers normally at L1. Visualized portion of the spinal cord appear normal. Level specific findings as follows: T12-L1: Mild degenerative change L1-2: Moderately severe disc space narrowing, desiccation and spondylosis but no spinal canal stenosis or discrete disc protrusion. Moderate bilateral neural foraminal narrowing. L2-3: No spinal canal stenosis or discrete disc protrusion. Mild to moderate bilateral neural foraminal narrowing. L3-4: More pronounced thickening of ligamentum flavum along with facet hyperostosis and mild to moderate posterior disc bulging resulting in borderline stenosis in the lateral recesses. No spinal canal stenosis or discrete disc protrusion. Mild to moderate bilateral neural foraminal narrowing left worse than right. L4-5: Similar changes as at L3-4 with no spinal canal stenosis or discrete disc protrusion. The lateral recesses overcoming narrowed but not quite stenosed. Moderate left and mild to moderate right-sided neural foraminal narrowing. L5-S1: No spinal canal stenosis or discrete disc protrusion. Mild to moderate bilateral neural foraminal narrowing. IMPRESSION: Multilevel degenerative changes with no spinal canal stenosis or discrete disc protrusion. See level specific findings as above. Reviewed, dictated and finalized at location A. ERS MATERIAL HANDLERS
== END 2025-10-06 14:38 | disposition home or self-care (01) ==
PROVIDERS: PCP Emergency Medicine; Visit Provider Nurse Practitioner Adult Health
DX: M47.816 Spondylosis without myelopathy or radiculopathy, lumbar region (principal); M51.35 Other intervertebral disc degeneration, thoracolumbar region; M48.061 Spinal stenosis, lumbar region without neurogenic claudication; M46.06 Spinal enthesopathy, lumbar region; M48.16 Ankylosing hyperostosis [Forestier], lumbar region; M51.369 Other intervertebral disc degeneration, lumbar region without mention of lumbar back pain or lower extremity pain
CPT/HCPCS: 72148

== ENCOUNTER 2025-10-25 08:23 | Day surgery (SDC) | payer MEDICARE, SELFPAY ==
[2025-10-13 12:47] VITALS: BMI 23.6
--- NOTE | ~2025-10-25 | XR_ITS ---
EXAM/PROCEDURE: XR fluoroscopy no charge HISTORY: DIAG/PROG BARB L3,L4,L5 MEDIAL BRANCH/DORSAL RAMI NERVE BLK COMPARISON: None available. TECHNIQUE: Fluoroscopy no charge FLUOROSCOPY TIME: 56.2 seconds Dose: 12.43 mGy IMPRESSION: Fluoroscopic images provided for pain service. No radiologist present. See procedure/operative note for complete evaluation. Reviewed, dictated and finalized at location A. RVOIR ENGINEERING MANAGER IMPRESSION: Fluoroscopic images provided for pain service. No radiologist present. See proc edure/operative note for complete evaluation.
--- NOTE | 2025-10-25 09:45 | WPDHPUPDATE1 ---
History and Physical Update Update Date/Time: 10/25/25 09:45 History and Physical has been reviewed, including an updated exam of the patient. There are NO changes in the patient's condition. Risks, benefits, and alternatives have been discussed and questions answered. Patient agrees to proceed with procedure.
--- NOTE | 2025-10-25 09:46 | W.PM.PROC2 ---
Procedure Note - Detailed Date of Procedure 10/25/25 Pre-op Diagnosis Lumbar Spondylosis w/o Myelopathy or Radiculopathy Post-op Diagnosis Same Procedure Performed Diagnostic bilateral Lumbar Medial Branch/Dorsal Ramus Blocks at L3, L4, L5 Treating the bilateral L4-5, L5-S1 Facet Joints Under Fluoroscopic Guidance and with Contrast Control. (4 levels blocked). Surgeon Ari Costello MD Capacity Planning Engineer None. Anesthesia Local Description of Procedure INFORMED CONSENT: Risks, benefits and alternatives to the procedure were discussed in detail with the patient who expressed explicit understanding and consent to proceed. Patient was informed verbally and in written form regarding the risks associated with the procedure including the low risk of serious infection, bleeding/bruising, allergic reaction, nerve or organ injury, paralysis, procedural site pain or discomfort, worsening pain and/or mobility, failure to treat and/or disfigurement. The patient expressed explicit understanding and consent to proceed. All materials required for the procedure were available prior to procedure start. Site and side were marked prior to procedure and confirmed in the presence of the patient. PROCEDURE IN DETAIL: The patient was brought to the procedural suite and placed in the prone position. Patient was made comfortable with use of pillows under the head/chest, hips and ankles. Skin overlying the injection site on the affected side(s) was prepared broadly with ChloraPrep applicator and draped in a sterile manner. Aseptic technique was used throughout. The endplates of the vertebral bodies at the site(s) of interest were aligned in the AP view. Ipsilateral oblique angulation was utilized to optimize visualization of the intersection between the superior articulating process and transverse process at each target site. Local anesthesia was established by infiltration with approximately 5 mL of 1% lidocaine via a 1-1/2 inch 27-gauge needle. A 25-gauge 3.5 inch Quincke spinal needle was advanced until the needle tip contacted periosteum at the target site, right L3. Lateral view was utilized to confirm the appropriate placement of the needle tip just anterior to the facet line and superior to the pedicle. In the Lateral view, 0.25 mL of Omnipaque 300 contrast medium was injected after negative aspiration for CSF, blood or other bodily fluid, showing appropriate extra-articular spread of contrast without evidence of intravascular, foraminal or intrathecal placement. A 0.5 mL solution of 0.5% PF bupivacaine was injected after negative repeat aspiration. Appropriate spread of the injectate was confirmed with washout of previously injected contrast. No parasthesias were elicited. Needle was removed completely intact without difficulty. The same exact procedure was repeated for all remaining levels on the ipsilateral side, right L4, L5 medial branches/dorsal ramus, modified as necessary to accommodate for the new target location with identical findings and results and no evidence of complication. The same exact procedure was repeated for all remaining levels on the contralateral side, left L3, L4, L5 medial branches/dorsal ramus, modified as necessary to accommodate for the new target location with identical findings and results and no evidence of complication. Images were saved and documented in the patient chart. Patient's skin was cleaned and sterile bandage applied. The patient tolerated the procedure well. The patient was transported to the recovery area in stable condition where they were observed for an appropriate amount of time prior to discharge, without evidence of complication. Patient was instructed on the appropriate completion of a pain diary over the next 12-24 hours. The patient was instructed to avoid excessive activity for the next 48 hours, including climbing and frequent use of stairs. Showers only for 48 hours. They were instructed not to drive or operate heavy machinery for 24 hours. They are to monitor for severe headaches, fevers, chills, night sweats, erythema/swelling at the site or any other signs of infection, bleeding/bruising, bowel or bladder changes as well as new pain, weakness or numbness in the upper or lower extremity. Should they notice these changes, they are instructed to call our office immediately or report directly to the nearest Emergency Department if no answer or if after posted office hours. COMPLICATIONS: None COMMENTS: None CONTRAST WASTED: 28.5mL Omnipaque 300. Complications No immediate complications Condition Stable Disposition Same day [facility] Billing Surgery - Charge Forward: Surgery Billing
[2025-10-25 09:52] VITALS: BMI 23.6
[2025-10-25 09:55] VITALS: BP 151/82; PULSE 83; RESP 18; TEMP 36.7; O2SAT 99
[2025-10-25 10:14] VITALS: BP 177/88; PULSE 81; RESP 23; O2SAT 97
[2025-10-25 10:19] VITALS: BP 158/83; PULSE 78; RESP 17; O2SAT 99
[2025-10-25] MEDS: BUPivacaine HCL 0.5% 10 ML AMP (10:19)
[2025-10-25 10:27] VITALS: BP 157/76; PULSE 81; RESP 16; O2SAT 98
== END 2025-10-25 10:37 | disposition home or self-care (01) ==
PROVIDERS: PCP Emergency Medicine; Visit Provider Anesthesiology Pain Medicine
PROC: (CPT 64493; principal; 2025-10-25 10:10)
DX: M47.816 Spondylosis without myelopathy or radiculopathy, lumbar region (principal)
CPT/HCPCS: 64493 ×2; 64494 ×2; 64495 ×2; 99199

== ENCOUNTER 2025-11-08 11:59 | Day surgery (SDC) | payer MEDICARE, SELFPAY ==
--- NOTE | 2025-11-08 13:02 | WPDHPUPDATE1 ---
History and Physical Update Update Date/Time: 11/08/25 13:02 History and Physical has been reviewed, including an updated exam of the patient. There are NO changes in the patient's condition. Risks, benefits, and alternatives have been discussed and questions answered. Patient agrees to proceed with procedure.
--- NOTE | 2025-11-08 13:03 | W.PM.PROC2 ---
Procedure Note - Detailed Date of Procedure 11/08/25 Pre-op Diagnosis Spondylosis Post-op Diagnosis Same Procedure Performed Diagnostic bilateral Lumbar Medial Branch/Dorsal Ramus Blocks at L3, L4, L5 Treating the bilateral L4-5, L5-S1 Facet Joints Under Fluoroscopic Guidance and with Contrast Control. (4 levels blocked). Surgeon Ari Costello MD Apparatus Repair Mechanic None. Anesthesia Local Description of Procedure INFORMED CONSENT: Risks, benefits and alternatives to the procedure were discussed in detail with the patient who expressed explicit understanding and consent to proceed. Patient was informed verbally and in written form regarding the risks associated with the procedure including the low risk of serious infection, bleeding/bruising, allergic reaction, nerve or organ injury, paralysis, procedural site pain or discomfort, worsening pain and/or mobility, failure to treat and/or disfigurement. The patient expressed explicit understanding and consent to proceed. All materials required for the procedure were available prior to procedure start. Site and side were marked prior to procedure and confirmed in the presence of the patient. PROCEDURE IN DETAIL: The patient was brought to the procedural suite and placed in the prone position. Patient was made comfortable with use of pillows under the head/chest, hips and ankles. Skin overlying the injection site on the affected side(s) was prepared broadly with ChloraPrep applicator and draped in a sterile manner. Aseptic technique was used throughout. The endplates of the vertebral bodies at the site(s) of interest were aligned in the AP view. Ipsilateral oblique angulation was utilized to optimize visualization of the intersection between the superior articulating process and transverse process at each target site. Local anesthesia was established by infiltration with approximately 5 mL of 1% lidocaine via a 1-1/2 inch 27-gauge needle. A 25-gauge 3.5 inch Quincke spinal needle was advanced until the needle tip contacted periosteum at the target site, right L3. Lateral view was utilized to confirm the appropriate placement of the needle tip just anterior to the facet line and superior to the pedicle. In the Lateral view, 0.25 mL of Omnipaque 300 contrast medium was injected after negative aspiration for CSF, blood or other bodily fluid, showing appropriate extra-articular spread of contrast without evidence of intravascular, foraminal or intrathecal placement. A 0.5 mL solution of 2.0% PF lidocaine was injected after negative repeat aspiration. Appropriate spread of the injectate was confirmed with washout of previously injected contrast. No parasthesias were elicited. Needle was removed completely intact without difficulty. The same exact procedure was repeated for all remaining levels on the ipsilateral side, right L4, L5 medial branches/dorsal ramus, modified as necessary to accommodate for the new target location with identical findings and results and no evidence of complication. The same exact procedure was repeated for all remaining levels on the contralateral side, left L3, L4, L5 medial branches/dorsal ramus, modified as necessary to accommodate for the new target location with identical findings and results and no evidence of complication. Images were saved and documented in the patient chart. Patient's skin was cleaned and sterile bandage applied. The patient tolerated the procedure well. The patient was transported to the recovery area in stable condition where they were observed for an appropriate amount of time prior to discharge, without evidence of complication. Patient was instructed on the appropriate completion of a pain diary over the next 12-24 hours. The patient was instructed to avoid excessive activity for the next 48 hours, including climbing and frequent use of stairs. Showers only for 48 hours. They were instructed not to drive or operate heavy machinery for 24 hours. They are to monitor for severe headaches, fevers, chills, night sweats, erythema/swelling at the site or any other signs of infection, bleeding/bruising, bowel or bladder changes as well as new pain, weakness or numbness in the upper or lower extremity. Should they notice these changes, they are instructed to call our office immediately or report directly to the nearest Emergency Department if no answer or if after posted office hours. COMPLICATIONS: None COMMENTS: None CONTRAST WASTED: 28.5mL Omnipaque 300. Complications No immediate complications Condition Stable Disposition Same day [facility] Billing Surgery - Charge Forward: Surgery Billing
[2025-11-08 13:05] VITALS: BP 144/75; PULSE 81; RESP 16; TEMP 36.9; O2SAT 98
[2025-11-08 13:58] VITALS: BP 177/68; PULSE 81; RESP 17; O2SAT 97
[2025-11-08] MEDS: LIDOCAINE 2% PF LOCAL INJ 5 ML VIAL INFILTRATE (14:00)
[2025-11-08] MEDS: LIDOCAINE 1% PF INJ 5 ML VIAL INFILTRATE (14:00)
[2025-11-08 14:03] VITALS: BP 160/75; PULSE 79; RESP 17; O2SAT 98
[2025-11-08 14:08] VITALS: BP 156/76; PULSE 78; RESP 13; O2SAT 98
[2025-11-08 14:14] VITALS: BP 153/74; PULSE 77; RESP 16; O2SAT 99
--- OUTSIDE RECORDS SUMMARY | 2025-11-08 14:19 | XMS_ITS | Encounter Summary ---
Author Organization [facility] Address [address] [place] [address] Phone Care Team Providers Care Crew Trainer Name Role Phone Kostas Montalvo MD Primary Care Provider [phone] Kostas Montalvo MD Unavailable [phone] Encounter Details Date Type Department Care Team [...] on file Legal Sex Female 12:07 PM PRESCHOOL DIRECTOR Gender Identity Not on file Sexual Orientation [...] on filedocumented in this encounter Care Teams Crew Trainer Relationship Specialty Start Date End Date Kostas Montalvo MD [address] [place] [address] PCP - General Family Practice 01/15/23 Kostas Montalvo MD [address] [place] [id number] Family Practice 01/15/23 documented as of this encounter
--- OUTSIDE RECORDS SUMMARY | 2025-11-08 14:19 | XMS_ITS | Clinical Summary ---
Author Organization [facility] Address [address] [place] [address] Care Team Providers Care Recovery Agent Name Role Phone Radha Ennis MD Primary Care Provider [phone] Allergies Active Allergy Reactions Criticality Noted Date Comments Codeine Anaphylaxis High 03/03/2013 Levofloxacin Itching,Palpitations Low 10/30/2022 Medications cyclobenzaprine 10 MG tablet Take 1 tablet (10 mg total) by mouth 2 (two) times daily as needed. 9 Active vitamin D2, ergocalciferol, 26012 UNITS capsule Take by mouth once a week. 3 Active ferrous sulfate, 65 mg elemental, 325 (65 FE) MG tablet Take 1 tablet (325 mg total) by mouth daily with breakfast. Active multi vitamin/minerals tablet Take 1 tablet by mouth daily. Active vitamin B-12 100 MCG tablet Take 0.5 tablets (50 mcg total) by mouth daily. Active cyanocobalamin 1000 MCG/ML injection Inject 1 mcg into the muscle monthly. Active Calcium 250 MG Cap Take 1 tablet by mouth daily. Active HYDROcodone-acetamin ophen (NORCO) 5-325 MG tablet Take 1 tablet by mouth every 4 (four) hours as needed. Active rOPINIRole (REQUIP) 1 MG tablet Take 1 tablet (1 mg total) by mouth nightly at bedtime. 5 Active pantoprazole EC (PROTONIX) 40 MG tablet Take 1 tablet (40 mg total) by mouth daily. 5 Active adalimumab (HUMIRA) 40 MG/0.8ML injectionIndications :Crohn's disease with complication, unspecified gastrointestinal tract location (CMS/HCC [facility]/HCC) Inject 0.8 mLs (40 mg total) into the skin every 14 (fourteen) days. 5.6 mL Active Active Problems Problem Noted Date Diagnosed Date Cat bite 09/21/2019 Crohn's disease with complication 09/21/2019 Transaminitis 09/21/2019 Cellulitis of left upper extremity 2019 Encounters Date Type Department Care Team Description 09/17/2025 Scan [facility] Scanned, Doc Med Group 09/01/2025 [facility] [address], [address] [place] [address] Hetal Ballesteros RN 09/01/2025 Telephone [facility] - [address] [place] [address] Juan Martínez MD Medication from Last 3 Months Immunizations Immunization Administration Dates Next Due Pneumococcal (Pneumovax 23) 09/23/2015 Zoster (Zostavax) 06643 Unt/0.65Ml 09/23/2015 Family History Medical History Relation Comments Breast Cancer Mother Breast Cancer Paternal Aunt ? age Breast Cancer Paternal cousin Relation Status Comments Mother Paternal Aunt Paternal cousin Social History Tobacco Use Types Packs/Day Years Used Date Smoking Tobacco: Every Day Cigarettes Smokeless Tobacco: Never Tobacco Cessation:Ready to Q uit: Not Asked; Counseling Given: Not Answered Alcohol Use Standard Drinks/Week Comments Not Currently 0 (1 standard drink = 0.6 oz pur e alcohol) Comments No Sex and Gender Information Value Date Recorded Sex Assigned at Female 07/12/2025 9:08 AM CDT Legal Sex Female 4:43 PM CDT Gender Identity Not on file Sexual Orientation Not on file Last Filed Vital Signs Vital Sign Reading Time Taken Comments Blood Pressure 189/82 07/12/2025 11:40 AM CDT Pulse 81 07/12/2025 11:31 AM CDT Temperature 36.7 C (98.1 F) 07/12/2025 11:31 AM CDT Respiratory Rate 16 07/12/2025 11:31 AM CDT Oxygen Saturation 100% 07/12/2025 11:31 AM CDT Inhaled Oxygen Concentration - - Weight 53.1 kg (117 lb) 07/09/2025 10:51 AM CDT Height 149.9 cm (4' 11) 07/09/2025 10:51 AM CDT Body Mass Index 23.63 07/09/2025 10:51 AM CDT Plan of Treatment Health Maintenance Due Date Last Done Comments DTaP, Tdap and Td Vaccines (1 - Tdap) 07/16/2012 07/15/2012 Zoster Vaccines (2 of 3) 11/18/2015 09/23/2015 Annual Medicare Wellness Visit 2019 PHQ-2 (Physician [place]) 11/18/2024 COVID-19 Vaccine ( - season) 2025 Influenza Adult (#1) 2025 08/28/2022, 09/08/2021, 09/05/2020, Additional history exists Pneumococcal Vaccine: 50+ Years (3 of 3 - PCV20 or PCV21) 09/05/2025 09/05/2020, 09/23/2015 Mammogram Screening 07/21/2027 07/21/2025, 06/13/2023, 05/29/2023 RSV Immunization or 60+ Years (1 - 1-dose 75+ series) 2029 Colorectal Cancer Screening Colonoscopy (10 Years) 06/08/2035 06/08/2025, 02/04/2017 Dexa Scan (General) Completed 09/04/2021, Hepatitis C Completed 07/24/2023, 11/01/2022 Hepatitis A Vaccines Aged Out No long er eligible based on patient's age to complete this topic Meningococcal B Vaccine Aged Out No l onger eligible based on patient's age to complete this topic Meningococcal Vaccine Aged Out No regla anaya eligible based on patient's age to complete this topic RSV Immunizations Under 20 Months Aged Out No longer eligible based on patient's age to complete this topic Medical Devices Implanted Type Area Seam Rubbing Machine Operator Device Identifier Shelf Expiration Date Model / Serial / Lot [employer]one Preloaded Iol Implanted:Qty: 1 on 07/12/2025 by Anastasia Lovett MD at [facility] Right: Eye [id number] 01/26/2027 [id number] / [id number] / Procedures Procedure Name Priority Date/Time Associated Diagnosis Comments MG SCREENING W FLAVIO BARB DIGI Routine 07/21/2025 1:18 PM CDT Encounter for screening mammogram for malignant neoplasm of breast HEPATITIS C ANTIBODY Routine 07/24/2023 6:35 AM CDT Hypouricemia Screening examination for poliomyelitis COLONOSCOPY/EGD GENERIC (SCAN ORDER) Routine 02/04/2017 from Last 3 Months or Most Recently Relevant to Health Maintenance Results * MG SCREENING W FLAVIO BARB DIGI (07/21/2025 1:18 PM CDT) Anatomical Region Laterality Modality Breast Bilateral Mammography 07/22/2025 4:56 PM CDT Impressions 07/22/2025 4:59 PM CDT ===== IMPRESSION: ===== 1. Stable mammographic appearance with no new findings to suggest malignancy in either breast. Assessment: ACR BI-RADS 1 - NEGATIVE Recommendation: 1:Routine Screening Bilateral Comments: Ordered By: RADHA ENNIS Interpreted By: Teddy Hoffman, 07/22/2025 4:56 PM Narrative 07/22/2025 4:[address] [place] [address] EXAMINATION: Digital bilateral screening mammogram with 3-D tomosynthesis EXAM DATE/TIME: 07/21/2025 1:10 PM REASON FOR EXAM: Encounter for screening mammogram for malignant neoplasm of breast Breast carcinoma in mother at age 60 and in paternal aunts at unknown age is. Benign left breast biopsy in 2008 COMPARISON: 05/29/2023.. 06/07/2020 Technique: Digital screening mammography of both breasts was performed in addition to 3-D Tomosynthesis technique. This study was read with the assistance of a computer-aided detection system. Tissue density: There are scattered areas of fibroglandular density. Findings: There is no new focal asymmetry, dominant mass lesion, area of skin thickening, or cluster of suspicious appearing calcifications in either breast to suggest malignancy. Radha Ennis MD MAMMO Final Result * HEPATITIS C ANTIBODY (07/24/2023 6:35 AM CDT) HEPATITIS C AB NON-REACTI VE NON-REACTI VE 08/16/2023 12:20 PM CDT [facility] 07/24/2023 6:35 AM CDT Cesar Santamaria MD LABORATORY Final Resul t [facility] [address] [place] [address], * COLONOSCOPY/EGD (02/04/2017) us Documents Scanned SCANNING Final Result from Last 3 Months or Most Recently Relevant to Health Maintenance Insurance [employer] MEDICARE Advance Directives Documents on File Type Date Recorded Patient Promotions Associate Expl anation Advance Directives and Living Will 10/06/2019 12:00 AM ADVANCED DIRECTIVES Advance Directives and Living Will 05/05/2019 12:00 AM ADVANCED DIRECTIVES Advance Directives and Living Will 02/04/2017 12:00 AM ADVANCED DIRECTIVES Advance Directives and Living Will 04/25/2015 12:00 AM ADVANCED DIRECTIVES Advance Directives and Living Will 02/28/2015 12:00 AM ADVANCED DIRECTIVES Advance Directives and Living Will 12/20/2014 12:00 AM ADVANCED DIRECTIVES Advance Directives and Living Will 11/04/2014 12:00 AM ADVANCED DIRECTIVES Advance Directives and Living Will 09/27/2014 12:00 AM ADVANCED DIRECTIVES Advance Directives and Living Will 08/31/2014 12:00 AM ADVANCED DIRECTIVES Care Teams Recovery Agent Relationship Specialty Start Date End Date Radha Ennis MD [address] [place] [id number] PCP - General FAMILY PRACTICE 10/30/22
--- OUTSIDE RECORDS SUMMARY | 2025-11-08 14:19 | XMS_ITS | Encounter Summary ---
Author Organization [facility] Address [address] [place] [phone] Phone Care Team Providers Care Cadmium Burner Name Role Phone Kostas Montalvo MD Primary Care Provider [phone] Karthik Herron MD Unavailable [phone] Reason for Visit * Reason Comments Medication Refill Encounter Details Date Type Department Care Team (Late st Contact Info) Description 04/25/2024 Refill [facility] - Gastroenterology - [place] [address] [place] [id number] Tracey Almendarez, MARISSA, CASKET INSPECTOR [address] [place] [address] Medication Refill Social History Tobacco Use Types [...] she has an appt in May with [facility]enterology. She is not sure of the [...] complication documented in this encounter Care Teams Cadmium Burner Relationship Specialty Start Date End Date Kostas Montalvo MD [address] [place] [address] PCP - General Family Medicine 02/10/22 Karthik Herron MD [address] [place] [address] Consulting Physician Gastroenterology 08/16/22 documented as of this encounter
--- OUTSIDE RECORDS SUMMARY | 2025-11-08 14:19 | XMS_ITS | Clinical Summary ---
Author Organization [facility] Address [address] [address] Phone Care Team Providers Care Trading Floor Operator Name Role Phone Kostas Montalvo MD Primary Care Provider [phone] Karthik Herron MD Unavailable [phone] Allergies Active Allergy Reactions Criticality Noted Date [...] Comments Blood Pressure 140/88 12/11/2023 12:45 PM COLOR GRINDER Pulse 92 12/11/2023 12:45 PM COLOR GRINDER Temperature 36 C (96.8 F) 12/11/2023 10:18 AM COLOR GRINDER Respiratory Rate 14 12/11/2023 12:45 PM COLOR GRINDER Oxygen Saturation 98% 12/11/2023 12:45 PM COLOR GRINDER Inhaled Oxygen Concentration - - Weight 54.4 kg (120 lb) 12/03/2023 1:00 PM COLOR GRINDER Height 149.9 cm (4' 11) 12/03/2023 1:00 PM COLOR GRINDER Body Mass Index 24.24 12/03/2023 1:00 PM COLOR GRINDER Plan of Treatment Health Maintenance Due Date Last Done Comments TdaP Immunization 1954 Cologuard 1999 Immunochemical Fecal Occult Blood 1999 Respiratory Syncytial Virus (RSV) Immunization (Adult) (1 - Risk 50-74 years 1-dose series) 2004 Zoster Immunization (1 of 2) 11/18/2015 09/23/2015 Medicare Initial AWV G0438 03/18/2020 SARS-COV-2 Immunization (3 - Moderna risk series) 07/11/2021 06/13/2021, 03/16/2021 DEXA Bone Density 09/04/2023 09/04/2021 Mammogram 06/13/2024 06/13/2023, 07/25/2021 Influenza Immunization (#1) 07/19/202508/18, 09/08/2021, 09/05/2020, Additional history exists Pneumococcal Immunization (50+ years) (3 of 3 - PCV20 or PCV21) 09/05/2025 09/05/2020, 09/23/2015 Colonoscopy 12/11/2026 12/11/2023, 11/19, 02/13/2022, Additional history exists Colorectal Cancer Screening 12/11/2026 DTaP/Tdap/Td Immunization Discontinued 07/15/2012 Pneumococcal Immunization Combined Discontinued 09/05/2020, 09/23/2015 Hepatitis C Virus (HCV) Screening Completed 07/24/2023, 11/01/2022 Hepatitis B Immunization Aged Out No longer eligible based on patient's age to complete this topic Human Papillomavirus (HPV) Immunization (No Doses Required) Completed Meningococcal Immunization (ACWY) Aged Out No longer eligible based on patient's age to complete this topic Rotavirus Immunization Aged Out No lo nger eligible based on patient's age to complete this topic Procedures Procedure Name Priority Date/Time Associated Diagnosis Comments GI IMAGING - COLONOSCOPY Routine 12/11/2023 10:01 AM COLOR GRINDER HEPATITIS PANEL ACUTE (AHP) Routine 11/01/2022 12:32 PM COLOR GRINDER Elevated liver enzymes Inflammatory liver disease, unspecified ROBERTO BONE DENSITOMETRY AXIAL SKELETON Routine 09/04/2021 12:00 AM CDT Crohn's disease of colon with complication (HCC) Postmenopause MAMMOGRAM BILATERAL GENERIC 07/25/2021 12:00 AM CDT from Last 3 Months or Most Recently Relevant to Health Maintenance Results * GI IMAGING - COLONOSCOPY (12/11/2023 10:01 AM COLOR GRINDER) Karthik Herron MD IMG DIAGNOSTIC ORDERABLES Final Result * HEPATITIS PANEL ACUTE (AHP) (11/01/2022 12:32 PM COLOR GRINDER) HEPATITIS A IGM ANTIBODY NON DETECTED NON DETECTED [place] [id number] 11/01/2022 9:23 PM COLOR GRINDER [facility] Comment: IGM Antibodies to HAV not detected. Does not exclude early acute or recovered HAV infection. HEP B CORE AB (IGM) NON DETECTED NON DETECTED [place] [id number] 11/01/2022 9:23 PM COLOR GRINDER [facility] Comment:IGM anti-HBC not det ected. Does not exclude the possibility of exposure to or infection with HBV. HEPATITIS B SURFACE ANTIGEN NON DETECTED NON DETECTED [facility] ARCH [id number] 11/01/2022 9:23 PM COLOR GRINDER [facility] Comment:A nonreactive test r esult does not exclude the possibility of exposure to or infection with Hepatitis B virus. A nonreactive test result in individuals with prior exposure to hepatitis B may be due to antigen levels below the detection limit of this assay or lack of antigen reactivity to the antibodies in this assay. hepatitis C antibody 0.14 <1 S/CO [facility] ARCH [id number] 11/01/2022 9:23 PM COLOR GRINDER [facility] Comment: Signal/Cutoff ratio < 0.79 is Nondetected Signal/Cutoff ratio 0.80-0.99 is Grayzone Signal/Cutoff ratio > 0.99 is Detected Supplemental assays are recommended if signal/cutoff ratio is >/=1.00. Signal/cutoff ratio result >/= 5.00 is 97% predictive of positivity for recombinant immunoblot assay (RIBA) and will be reported to the [place] [facility] as required. Blood Venipuncture / Unknown 11/01/2022 12:32 PM COLOR GRINDER 11/01/2022 12:46 PM COLOR GRINDER us Karthik Herron MD HEMATOLOGY ORDERABLES Final Res ult [facility] [address] [place] [address], [place] * ROBERTO BONE DENSITOMETRY AXIAL SKELETON (09/04/2021 12:00 AM CDT) Anatomical Region Laterality Modality BODY N/A Other 09/04/2021 us Agnela Nayak PAC IMG DEXA ORDERABLES Final Result * MAMMOGRAM BILATERAL MISCELLANEOUS (07/25/2021 12:00 AM CDT) 07/25/2021 us Not On File Provider IMG MAMMO ORDERABLES Final Result SCAN from Last 3 Months or Most Recently Relevant to Health Maintenance Insurance [place]ICAID [place] MEDICARE C [facility] Care Teams Trading Floor Operator Relationship Specialty Start Date End Date Kostas Montalvo MD [address] [place] [id number] PCP - General Family Medicine 02/10/22 Karthik Herron MD [address] [place] [address] Consulting Physician Gastroenterology 08/16/22
--- OUTSIDE RECORDS SUMMARY | 2025-11-08 14:19 | XMS_ITS | Clinical Summary ---
Author Organization [facility] Address [address] [place] [address] Care Team Providers Care Power Wood Sawyer Name Role Phone Kostas Montalvo MD Primary Care Provider Kostas Montalvo MD Unavailable [phone] Allergies Active Allergy Reactions Criticality Noted Date [...] 4 (four) hours as needed Active Ca-D3-mag aw-xngo-uom-ma ng-bor (Calcium 600-D3 Plus, mag-zinc,) 600 mg [...] 06/27/2012 Surgical History Surgery Date Site/Laterality Comments [place] CHOLECYSTECTOMY Cholecystectomy - (Added by TW Conv) [place] TOTAL ABDOMINAL HYSTERECT W/WO RMVL TUBE OVARY Hysterectomy - (Added by TW Conv) GASTRIC BYPASS Gastric Surgery For Morbid Obesity Gastric Bypass - -1987 (Added by TW Conv) [place] HEMORRHOIDECTOMY INTERNAL RUBBER BAND LIGATIONS Hemorrhoidectomy - (Added by TW Conv) [place] TONSILLECTOMY PRIMARY/SEC ONDARY <AGE 12 Tonsillectomy - [...] Cancer Sister 2 Cancer - (Added by TW Conv) Relation Name Status Comments Brother 1 [...] on file Legal Sex Female 12:07 PM MANAGEMENT ASSISTANT Gender Identity Not on file Sexual Orientation Not on file Last Filed Vital Signs Vital Sign Reading Time Taken Comments Blood Pressure 163/80 07/07/2024 1:02 PM CDT Pulse 96 07/07/2024 1:02 PM CDT Temperature 36.8 C (98.2 F) 06/27/2023 8:01 AM CDT Respiratory Rate 18 01/15/2023 12:4 6 PM MANAGEMENT ASSISTANT Oxygen Saturation 97% 07/07/2024 1:02 PM CDT [...] 09/23/2015 Hepatitis B Screening Completed 07/07/2024 Insurance [employer] MEDICARE MEDICARE ID[place] Care Teams Power Wood Sawyer Relationship Specialty Start Date End Date Kostas Montalvo MD [address] [place] [id number] PCP - General Family Practice 01/15/23 Kostas Montalvo MD [address] [place] [address] Family Practice 01/15/23
--- OUTSIDE RECORDS SUMMARY | 2025-11-08 14:19 | XMS_ITS | Encounter Summary ---
Author Organization [facility] Address [address] [place] [id number] Care Team Providers Care Apprentice Pattern Maker Name Role Phone Kostas Montalvo MD Primary Care Provider Kostas Montalvo MD Unavailable [phone] Reason for Visit * Auth/Cert (Routine) Specialty Diagnoses / Procedures Referred By Contcyril t Referred To Contact Diagnoses Crohn's disease of colon without complication (HCC) Crohn's disease of colon without complication (CMS/HCC) (HCC) [K50.10] Procedures HI COLONOSCOPY FLX DX W/COLLJ SPEC WHEN PFRMD COLONOSCOPY Referral ID Status Reason Start Date Expiration Date Visits Re quested Visits Authorized [id number] 1 1 Encounter Details Date Type Department Care Team (Late st Contact Info) Description 12/28/2024 Hospital Encounter [facility] [address] [place] [address] Jareth Whitaker, DO 4 [facility] [address] [address] Social History Tobacco Use Types Packs/Day Years [...] on file Legal Sex Female 12:07 PM HOSE WRAPPER Gender Identity Not on file Sexual Orientation Not on file documented as of this encounter Plan of Treatment Not on file documented as of this encounter Visit Diagnoses Diagnosis Crohn's disease of colon without complication (HCC)- Primary documented in this encounter Admitting Diagnoses Diagnosis Crohn's disease of colon without complication (HCC) documented in this encounter Care Teams Apprentice Pattern Maker Relationship Specialty Start Date End Date Kostas Montalvo MD [address] [place] [address] PCP - General Family Practice 01/15/23 Kostas Montalvo MD [address] [place] [address] Family Practice 01/15/23 documented as of this encounter
== END 2025-11-08 14:28 | disposition home or self-care (01) ==
PROVIDERS: PCP Emergency Medicine; Visit Provider Anesthesiology Pain Medicine
PROC: (CPT 64493; principal; 2025-11-08 13:45)
DX: M47.816 Spondylosis without myelopathy or radiculopathy, lumbar region (principal)
CPT/HCPCS: 64493 ×2; 64494 ×2; 64495 ×2